=== PATIENT | female | born 1995 | race Caucasian/White ===

== ENCOUNTER 2016-09-10 22:04 | Emergency (ER) | payer OTHER ==
[2016-09-10] MEDS ORDERED: BENADRYL 25 MG CAPSULE PO ONE (22:47)
[2016-09-10] MEDS ORDERED: Decadron 4 MG INJ IM ONE (22:48)
--- NOTE | 2016-09-10 22:53 | ERPHSYRPT ---
- History of Present Illness Time Seen by Provider: 09/10/16 22:43 Source: patient Exam Limitations: no limitations Patient Subjective Stated Complaint: pt states she has had a ainsley for approx 2 weeks. states the only new exposure she can think of is swimming at [facility] Triage Nursing Assessment: pt alert and oeriented, answers qeustions approp. pt ambulatory with steady gait noted. respirations nonlabored with lungs cta. red raised bumps to abd, torso, back, hips. Physician History: FOR THE PAST 11 DAYS PT HAS HAD A PRURITIC ERYTHEMATOUS RASH ON THE TRUNK AND EXTREMITIES AFTER LYING AT [facility]. PT DENIES SHORTNESS OF AIR, FEVER, NAUSEA, THROAT SWELLING. Allergies/Adverse Reactions: tetanus toxoid, adsorbed Allergy (Verified 09/10/16 22:26) Home Medications: Non-Formulary Drug [Non-Formulary Item] 1 ea PO DAILY 12/04/15 [History] Omeprazole 20 MG [Prilosec 20 mg] 20 mg PO DAILY 09/10/16 [History] Prednisone 20 mg [Deltasone 20 mg] 20 mg PO DAILY 09/10/16 [History] Hx Tetanus, Diphtheria Vaccination/Date Given: Yes Hx Influenza Vaccination/Date Given: No Hx Pneumococcal Vaccination/Date Given: No Immunizations Up to Date: Yes - Review of Systems Constitutional: No Fever Ears, Nose, & Throat: No Throat Swelling Respiratory: No Dyspnea Abdominal/Gastrointestinal: No Abdominal Pain, No Nausea, No Vomiting Skin: Pruritis, Rash All Other Systems: Reviewed and Negative - Past Medical History Pertinent Past Medical History: Yes Neurological History: No Pertinent History ENT History: No Pertinent History Cardiac History: No Pertinent History Respiratory History: No Pertinent History Endocrine Medical History: No Pertinent History, Other Musculoskeletal History: No Pertinent History GI Medical History: GERD History: No Pertinent History Psycho-Social History: No Pertinent History Female Reproductive Disorders: No Pertinent History Other Medical History: CHRONIC HIVES - Past Surgical History Past Surgical History: No - Social History Smoking Status: Current every day smoker How long have you smoked: 3 years Exposure to second hand smoke: Yes Drug Use: none Patient Lives Alone: No - Female History Hx Last Menstrual Period: 2-3 weeks Hx Now: No - Nursing Vital Signs Nursing Vital Signs: Initial Vital Signs Temperature 98.2 F Temperature Source Oral Pulse Rate 93 Respiratory Rate 18 Blood Pressure [Right Arm] 119/78 Pain Intensity 0 - Physical Exam General Appearance: alert Eye Exam: PERRL/EOMI Ears, Nose, Throat Exam: TMs normal, pharynx normal, moist mucous membranes Neck Exam: full range of motion Respiratory Exam: lungs clear Cardiovascular Exam: normal heart sounds Gastrointestinal/Abdomen Exam: soft, normal bowel sounds Back Exam: normal range of motion Extremity Exam: No pedal edema Neurologic Exam: alert, cooperative Skin Exam: rash (HIVES SCATTERED ON EXTREMITIES AND TRUNK.) SpO2 Interpretation: normal SpO2: 100 Oxygen Delivery: Room Air - Course Nursing assessment & vital signs reviewed: Yes Ordered Tests: Medication Summary Generic Name Dose Route Start Last Admin Trade Name Freq PRN Reason Stop Dose Admin Dexamethasone Sodium Phosphate 4 mg 09/10/16 22:48 Decadron 4 Mg Inj IM 09/10/16 22:49 STAT ONE Discontinued Medications Generic Name Dose Route Start Last Admin Trade Name Freq PRN Reason Stop Dose Admin Diphenhydramine HCl 50 mg 09/10/16 22:47 Benadryl 25 Mg Capsule PO 09/10/16 22:48 STAT ONE - Departure Time of Disposition: 22:53 Departure Disposition: Home Clinical Impression: URTICARIA Condition: Fair Critical Care Time: No Instructions: Reduce Environmental Allergens Additional Instructions: FOLLOW UP WITH PRIVATE DOCTOR TOMORROW. Prescriptions: Hydroxyzine HCl 25 mg [Atarax 25 mg] 25 mg PO Q4H PRN PRN #30 tablet PRN Reason: Itching Methylprednisolone Packet [Medrol Dosepack] 4 mg PO UD #30 packet
[2016-09-10] MEDS ORDERED: Decadron 4 MG INJ ONE (22:54)
[2016-09-10] MEDS ORDERED: BENADRYL 25 MG CAPSULE ONE (22:54)
[2016-09-10 23:13] VITALS: BP 112/77; PULSE 99; O2SAT 98
== END 2016-09-10 23:13 | disposition home or self-care (01) ==
LOC: ED 22:04
DX: L50.9 Urticaria, unspecified (principal)
CPT/HCPCS: 96372; 99284; J1100; A9270-GY

== ENCOUNTER 2017-05-17 17:11 | Emergency (ER) | payer MEDICAID, OTHER ==
[2017-05-17] MEDS ORDERED: TYLENOL 325 MG PO ONE (17:34)
[2017-05-17] MEDS ORDERED: TYLENOL 325 MG ONE (17:38)
--- NOTE | 2017-05-17 17:39 | ERPHSYRPT ---
- History of Present Illness Source: patient, family (mother) Patient Subjective Stated Complaint: woke up this am with sore throat, body aches, dizziness, fatigue. reports she is 8 weeks Triage Nursing Assessment: reports having a fever at home, sore throat, rating pain 6/10. decrease in intake of fluids today. throat redenned, inflamed tonsils. skin pink warm and dry. Timing/Duration: today Hx Tetanus, Diphtheria Vaccination/Date Given: No (allergy) Hx Influenza Vaccination/Date Given: No Hx Pneumococcal Vaccination/Date Given: No Immunizations Up to Date: Yes <JOELLE ORDAZ - Last Filed: 05/17/17 18:10> <MADDIE WHALEY - Last Filed: 05/17/17 19:12> - History of Present Illness Time Seen by Provider: 05/17/17 17:29 Physician History: CC: sore throat Hx: 21 y/o patient of Dr Gómez is 8 weeks . She has sore throat, fever , chills, muscle aches today. No cough or headache. She slept most of the day. She has hx of frequent strep throat in the past. No dysuria. No vomiting. No vaginal bleeding or abd pain. (JOELLE ORDAZ) Allergies/Adverse Reactions: tetanus toxoid, adsorbed Allergy (Verified 09/10/16 22:26) Home Medications: Vits W-Ca,Fe,FA(<1Mg) [] 1 each PO DAILY 05/17/17 [History] - Review of Systems Constitutional: Fever, Chills, Fatigue, Malaise Eyes: No Symptoms Ears, Nose, & Throat: Throat Pain, No Nose Congestion Respiratory: No Cough Abdominal/Gastrointestinal: No Nausea, No Vomiting, No Diarrhea Genitourinary Symptoms: No Dysuria Musculoskeletal: Myalgias Skin: No Rash Neurological: No Focal Weakness, No Headache, No Parasthesia All Other Systems: Reviewed and Negative <JOELLE ORDAZ - Last Filed: 05/17/17 18:10> - Past Medical History Pertinent Past Medical History: No Neurological History: No Pertinent History ENT History: No Pertinent History Cardiac History: No Pertinent History Respiratory History: No Pertinent History Endocrine Medical History: No Pertinent History Musculoskeletal History: No Pertinent History GI Medical History: No Pertinent History History: No Pertinent History Psycho-Social History: No Pertinent History Female Reproductive Disorders: No Pertinent History Other Medical History: CHRONIC HIVES - Past Surgical History Past Surgical History: No Neuro Surgical History: No Pertinent History Cardiac: No Pertinent History Respiratory: No Pertinent History Gastrointestinal: No Pertinent History Genitourinary: No Pertinent History Musculoskeletal: No Pertinent History Female Surgical History: No Pertinent History - Social History Smoking Status: Current every day smoker How long have you smoked: 3 years Exposure to second hand smoke: Yes Drug Use: none Patient Lives Alone: No - Female History Hx Last Menstrual Period: february Hx Now: Yes Gestational Age: 8 weeks <SUSHMAJOELLEFREIDA - Last Filed: 05/17/17 18:10> - Physical Exam General Appearance: alert, thin Eye Exam: PERRL/EOMI Ears, Nose, Throat Exam: moist mucous membranes, pharyngeal erythema, No tonsillar exudate Neck Exam: normal inspection, non-tender, supple, lymphadenopathy, No meningismus Respiratory Exam: normal breath sounds, lungs clear Cardiovascular Exam: regular rate/rhythm, No murmur Gastrointestinal/Abdomen Exam: soft, No tenderness, No distention Extremity Exam: normal inspection, normal range of motion Neurologic Exam: alert, oriented x 3, cooperative Skin Exam: warm, dry, No rash SpO2 Interpretation: normal SpO2: 100 Oxygen Delivery: Room Air <JOELLE ORDAZ - Last Filed: 05/17/17 18:10> - Nursing Vital Signs Nursing Vital Signs: Initial Vital Signs Temperature 99.1 F 05/17/17 17:11 Pulse Rate 112 H 05/17/17 17:11 Respiratory Rate 16 05/17/17 17:11 Blood Pressure 113/70 05/17/17 17:11 O2 Sat by Pulse Oximetry 100 05/17/17 17:11 Pain Scale Pain Intensity 7 - Course Nursing assessment & vital signs reviewed: Yes <JOELLE ORDAZ - Last Filed: 05/17/17 18:10> Ordered Tests: Active Orders 24 hr Category Date Time Status Clean Catch Urine Specimen STAT Care 05/17/17 17:33 Active PO Fluid Challenge STAT Care 05/17/17 17:33 Active STREP SCREEN-BETA A Stat Lab 05/17/17 17:38 Completed UA W/ MICROSCOPIC Stat Lab 05/17/17 18:50 Results Medication Summary Discontinued Medications Generic Name Dose Route Start Last Admin Trade Name Freq PRN Reason Stop Dose Admin Acetaminophen 650 mg 05/17/17 17:34 05/17/17 17:39 Tylenol 325 Mg PO 05/17/17 17:35 650 mg STAT ONE Administration Acetaminophen Confirm 05/17/17 17:38 Tylenol 325 Mg Administered 05/17/17 17:39 Dose 650 mg .ROUTE .STK-MED ONE Penicillin G Benzathine 1.2 mu 05/17/17 18:48 05/17/17 19:04 Bicillin L-A 1.2 Mu/2ml Syringe IM 05/17/17 18:49 1.2 mu STAT ONE Administration Penicillin G Benzathine Confirm 05/17/17 18:58 Bicillin L-A 1.2 Mu/2ml Syringe Administered 05/17/17 18:59 Dose 1.2 mu IM .STK-MED ONE Lab/Rad Data: Laboratory Results 05/17/17 05/17/17 05/17/17 Range/Units 18:50 17:38 17:38 Ur Collection Type CCMS Urine Color YELLOW (YELLOW) Urine Appearance SLIGHTLY CLOUDY (CLEAR) Urine pH 6.0 (5-6) Ur Specific [place] 1.010 (1.005-1.025) Urine Protein NEGATIVE (Negative) Urine Ketones MODERATE (NEGATIVE) Urine Blood NEGATIVE (0-5) Charles/ul Urine Nitrite NEGATIVE (NEGATIVE) Urine Bilirubin NEGATIVE (NEGATIVE) Urine Urobilinogen NORMAL (0-1) mg/dL Ur Leukocyte Esterase 1+ (NEGATIVE) Urine Culture Reflexed Pending Urine Glucose NEGATIVE (NEGATIVE) mg/dL Influenza Type A Ag NEGATIVE (NEGATIVE) Influenza Type B Ag NEGATIVE (NEGATIVE) RSV (PCR) NEGATIVE (Negative) Streptococcus Screen POSITIVE (Negative) Specimen Received [id number] <JOELLE ORDAZ - Last Filed: 05/17/17 18:10> - Progress Progress: improved Discussed with : Dalia Will see patient in: office <MADDIE WHALEY - Last Filed: 05/17/17 19:12> - Progress Progress Note: 05/17/17 18:10 Labs pending. Report to Dr Whaley for further care and disposition. (JOELLE ORDAZ) 05/17/17 18:49 1.2 MU Benzathine Penicillin im given, pt was educated about test results, dr Dalia notified, agreed with plan to discharge her, will follow with her in few days, she was instructed to rest, drink plenty of fluids, and gargle with warm saline water. (MADDIE WHALEY) <JOELLE ORDAZ - Last Filed: 05/17/17 18:10> - Departure Time of Disposition: 19:12 Departure Disposition: Home Critical Care Time: No <MADDIE WHALEY - Last Filed: 05/17/17 19:12> - Departure Clinical Impression: Strep pharyngitis Condition: Stable Referrals: BISMARK GÓMEZ [Primary Care Provider] - Additional Instructions: Rest x 2-3 days, drink plenty of fluids, return if severe pain, swelling, difficulty breathing, high fever> 103 F!
[2017-05-17 18:30] LABS: INFLUENZA A NEGATIVE (NEGATIVE); INFLUENZA B NEGATIVE (NEGATIVE); RESPIRATORY SYNCTIAL VIRUS NEGATIVE (Negative)
[2017-05-17] MEDS ORDERED: Bicillin L-A 1.2 Mu/2ML SYRINGE IM ONE ×2 (18:48→18:58)
[2017-05-17 19:05] LABS: Appearance SLIGHTLY CLOUDY (CLEAR); Bilirubin NEGATIVE (NEGATIVE); Blood NEGATIVE Ery/ul (0-5); Glucose NEGATIVE (NEGATIVE); Ketones MODERATE (NEGATIVE); Leukocyte Esterase 1+ (NEGATIVE); Nitrite NEGATIVE (NEGATIVE); Protein,Urine Dip NEGATIVE (Negative); Urobilinogen NORMAL mg/dL (0-1)
[2017-05-17 19:13] LABS: Bacteria FEW /HPF (NEGATIVE); Epithelial Cells MANY /HPF (FEW)
[2017-05-17 19:18] VITALS: BP 100/60; PULSE 78; O2SAT 99
== END 2017-05-17 19:29 | disposition home or self-care (01) ==
LOC: ED 17:11
DX: J02.0 Streptococcal pharyngitis (principal); F17.200 Nicotine dependence, unspecified, uncomplicated
CPT/HCPCS: 81000; 87430; 87631; 96372; 99284; J0561; A9270-GY

== ENCOUNTER 2017-08-02 13:21 | Observation (INO) | payer OTHER ==
[2017-08-02 13:48] VITALS: BP 116/57; PULSE 94
[2017-08-02 14:38] LABS: Amphetamine,Urine NEGATIVE (NEGATIVE); Barbiturate,Urine NEGATIVE (NEGATIVE); Benzodiazepine,Urine NEGATIVE (NEGATIVE); Cocaine,Urine NEGATIVE (NEGATIVE); Methadone,Urine NEGATIVE (NEGATIVE); Opiate,Urine NEGATIVE (NEGATIVE); PCP,Urine NEGATIVE (NEGATIVE); THC,Urine NEGATIVE (NEGATIVE)
[2017-08-02 15:28] LABS: Appearance CLEAR (CLEAR); Bilirubin NEGATIVE (NEGATIVE); Blood NEGATIVE Ery/ul (0-5); Glucose NEGATIVE (NEGATIVE); Ketones NEGATIVE (NEGATIVE); Leukocyte Esterase NEGATIVE (NEGATIVE); Nitrite NEGATIVE (NEGATIVE); Protein,Urine Dip NEGATIVE (Negative); Specific Gravity 1.005 (1.005-1.025); Urobilinogen NORMAL mg/dL (0-1)
== END 2017-08-02 14:40 | disposition home or self-care (01) ==
LOC: OB 13:21
PROVIDERS: ADMIT Family Medicine; ATTEND Family Medicine
DX: Z34.02 Encounter for supervision of normal first pregnancy, second trimester (principal)
CPT/HCPCS: 80307; 81002; G0378

== ENCOUNTER 2017-10-08 19:48 | Observation (INO) | payer OTHER ==
[2017-10-08 20:38] VITALS: BP 110/63; PULSE 80; O2SAT 99
== END 2017-10-08 21:53 | disposition home or self-care (01) ==
LOC: UNDOADMOB 19:48 → OB 19:48 → UNDODISOB 21:53
PROVIDERS: ADMIT Family Medicine; ATTEND Family Medicine
DX: Z34.03 Encounter for supervision of normal first pregnancy, third trimester (principal)
CPT/HCPCS: G0378

== ENCOUNTER 2017-11-30 19:30 | Observation (INO) | payer OTHER | END 2017-11-30 20:50 | disposition home or self-care (01) | LOC: OB 19:30 ==

== ENCOUNTER 2017-12-02 15:00 | Observation (INO) | payer OTHER ==
[2017-12-02 15:33] LABS: Hematocrit 31.4 % (35-47); Hemoglobin 10.4 gm/dl (12.0-16.0); Mean Cell Volume 90.8 fl (78-100); Mean Corpuscular Hgb Concent. 33.1 g/dl (32-36); Mean Platelet Volume 11.1 fl (6-9.5); Platelet Count 192 K/mm3 (150-450); Red Blood Count 3.46 M/mm3 (4.1-5.4)
[2017-12-02 15:34] VITALS: BP 119/68; PULSE 83
[2017-12-02 16:11] LABS: ALBUMIN 3.3 g/dL (3.5-5.0); ALKALINE PHOSPHATASE 187 U/L (38-126); ANION GAP 12.8 MEQ/L (5-15); CHLORIDE 107 mmol/L (98-107); Calcium 8.8 mg/dL (8.4-10.2); Carbon Dioxide 23 mmol/L (22-30); Creatinine 1 0.47 mg/dL (0.52-1.04); Glucose 99 mg/dL (74-106); Potassium 3.2 mmol/L (3.5-5.1); SGOT/AST 14 U/L (14-36); SGPT/ALT 9 U/L (0-35); SODIUM 140 mmol/L (137-145)
[2017-12-02 16:14] LABS: BLOOD UREA NITROGEN < 2 mg/dL (7-17)
[2017-12-02 16:37] LABS: BAND 1 % (0.0-2.0); Eosinophil 3 % (0.00-3.0); Lymphocytes 28 % (24-44); Metamyelocyte 1 %; Monocyte 3 % (0.0-12.0); Neutrophils 64 % (36.0-66.0); Total Cells Counted 100
[2017-12-02 16:38] LABS: Platelet Estimate NORMAL (NORMAL)
[2017-12-02 16:39] LABS: Granulocyte Absolute (ANC) 8.44 (1.4-6.9)
--- NOTE | 2017-12-02 21:31 | XRAY ---
Indication: Evaluate KAMRYN. Hypertension. Limited OB ultrasound performed to evaluate KAMRYN. There is a single intrauterine with heart rate 130 BPM. Four-quadrant KAMRYN is 10.1 cm. This was previously 11.5 cm on August 04, 2017.
== END 2017-12-02 16:50 | disposition home or self-care (01) ==
LOC: MED SURG 15:00
PROVIDERS: ADMIT Family Medicine; ATTEND Family Medicine
DX: Z34.03 Encounter for supervision of normal first pregnancy, third trimester (principal)
CPT/HCPCS: 36415; 76815; 80053; 84550; 85025; G0378; 59025

== ENCOUNTER 2017-12-07 13:00 | Observation (INO) | payer OTHER ==
[2017-12-07 13:56] VITALS: BP 138/83; PULSE 86
== END 2017-12-07 13:45 | disposition home or self-care (01) ==
LOC: OB 13:00
PROVIDERS: ADMIT Family Medicine; ATTEND Family Medicine
DX: Z34.83 Encounter for supervision of other normal pregnancy, third trimester (principal)
CPT/HCPCS: 59025; G0378

== ENCOUNTER 2017-12-09 15:22 | Observation (INO) | payer OTHER ==
[2017-12-09 15:44] VITALS: BP 130/80; PULSE 77
--- NOTE | 2017-12-09 18:06 | XRAY ---
Indication: growth. Gestational diabetes. 2-dimensional OB ultrasound performed. Comparison: August 04, 2017. There is again single viable intrauterine in cephalic presentation. heart rate 142 BPM. anatomy previously documented. Visualized stomach and bladder unremarkable. Placenta is again anterior without abruption/previa. BPD measures 9.39 cm corresponding to 38 weeks 2 days. HC measures 34.06 cm corresponding to 39 weeks 1 day. AC measures 35.14 cm corresponding to 39 weeks 0 day. FL measures 7.56 cm corresponding to 38 weeks 5 days. KAMRYN is 8.1 cm. Impression: Again single viable intrauterine with mean gestational age 38 weeks 6 days. Normal progression of . No new/acute findings.
== END 2017-12-09 16:55 | disposition home or self-care (01) ==
LOC: OB 15:22
PROVIDERS: ADMIT Family Medicine; ATTEND Family Medicine
DX: Z34.03 Encounter for supervision of normal first pregnancy, third trimester (principal)
CPT/HCPCS: 59025; 76805; G0378

== ENCOUNTER 2017-12-11 05:45 | Inpatient (IN) | payer OTHER ==
[2017-12-11] MEDS ORDERED: BRETHINE 1 MG/ML SQ PRN (17:29)
[2017-12-11] MEDS ORDERED: Cervidil 10 MG VAG SCH (22:00)
[2017-12-12 02:05] LABS: Barbiturate,Urine NEGATIVE (NEGATIVE); Benzodiazepine,Urine NEGATIVE (NEGATIVE); Cocaine,Urine NEGATIVE (NEGATIVE); Methadone,Urine NEGATIVE (NEGATIVE); Opiate,Urine NEGATIVE (NEGATIVE); PCP,Urine NEGATIVE (NEGATIVE); THC,Urine NEGATIVE (NEGATIVE)
[2017-12-12] MEDS ORDERED: XYLOCAINE 1% HCL 20 ML MDV IJ PRN (02:55)
[2017-12-12] MEDS ORDERED: PITOCIN 30 UNITS/ LR 500 ML 500 ML IV SCH (03:00)
[2017-12-12 03:13] LABS: BASOPHIL % 0.2 % (0.0-0.4); Basophil (Absolute #) 0.03 (0-0.4); Eosinophil % 1.7 % (0.00-5.0); Eosinophil (Absolute #) 0.22 (0-0.5); Granulocyte Absolute (ANC) 9.38 (1.4-6.9); Granulocytes % 72.2 % (36.0-66.0); Hematocrit 32.8 % (35-47); Hemoglobin 10.7 gm/dl (12.0-16.0); Lymphocyte (Absolute #) 2.47 (1.0-4.6); Mean Cell Volume 92.1 fl (78-100); Mean Corpuscular Hgb Concent. 32.6 g/dl (32-36); Mean Platelet Volume 12.1 fl (6-9.5); Monocyte (Absolute #) 0.89 (0.0-1.3); Monocytes % 6.9 % (0.0-12.0); Platelet Count 198 K/mm3 (150-450); Red Blood Count 3.56 M/mm3 (4.1-5.4); Red Cell Distribution Width 13.6 % (11.5-14.0)
[2017-12-12] MEDS: Lactated Ringers 1,000 ML IV SCH ×2 (07:52→18:29)
[2017-12-12] MEDS ORDERED: Lactated Ringers 1,000 ML IV ONE (15:07)
[2017-12-12] MEDS ORDERED: Ephedrine Sulfate 50 MG/ML IV PRN (15:07)
[2017-12-12 20:14] LABS: Appearance SLIGHTLY CLOUDY (CLEAR); Bilirubin NEGATIVE (NEGATIVE); Blood NEGATIVE Ery/ul (0-5); Glucose NEGATIVE (NEGATIVE); Ketones SMALL (NEGATIVE); Leukocyte Esterase NEGATIVE (NEGATIVE); Nitrite NEGATIVE (NEGATIVE); Ph 8.5 (5-6); Protein,Urine Dip NEGATIVE (Negative); Specific Gravity 1.005 (1.005-1.025); Urobilinogen NORMAL mg/dL (0-1)
[2017-12-13] MEDS: OB EPIDURAL NAROPIN/SUFENTANIL IN NACL EPIDURAL PRN ×2 (00:28→11:19)
[2017-12-13] MEDS: Lactated Ringers 1,000 ML IV SCH ×3 (02:08→13:10)
[2017-12-13] MEDS: CLINDAMYCIN-D5W 600 MG/50 ML*** 600 MG/50 ML BAG IV SCH ×2 (10:27→18:40)
[2017-12-13 14:19] LABS: Amphetamine,Urine NEGATIVE (NEGATIVE)
[2017-12-13] MEDS ORDERED: Reglan 10 MG/2 ML IV SCH (14:45)
[2017-12-13] MEDS ORDERED: BICITRA 30 ML CUP PO SCH (14:45)
[2017-12-13] MEDS ORDERED: Pepcid 20 MG VIAL IV SCH (14:45)
[2017-12-13] MEDS ORDERED: Lactated Ringers 1,000 ML IV SCH ×2 (15:00)
[2017-12-13] MEDS ORDERED: CEFAZOLIN 2 GM-D5W BAG** 2 GM/50 ML ML IV SCH (15:00)
[2017-12-13 15:16] LABS: Hematocrit 34.2 % (35-47); Hemoglobin 11.3 gm/dl (12.0-16.0); Mean Cell Volume 91.4 fl (78-100); Mean Corpuscular Hemoglobin 30.2 pg (26-32); Mean Platelet Volume 11.2 fl (6-9.5); Platelet Count 192 K/mm3 (150-450); Red Blood Count 3.74 M/mm3 (4.1-5.4); Red Cell Distribution Width 13.5 % (11.5-14.0); White Blood Count 17.3 K/mm3 (4.0-10.5)
[2017-12-13 15:52] LABS: INR 1.08 (0.8-3.0)
[2017-12-13 15:54] LABS: PTT 26.7 SECONDS (25.3-37.0)
[2017-12-13 16:00] LABS: ABO TYPING A; Antibody Screen NEGATIVE (NEGATIVE); RH TYPING POSITIVE
[2017-12-13 16:20] LABS: Appearance HAZY (CLEAR); Bilirubin NEGATIVE (NEGATIVE); Blood 250 Ery/ul (0-5); Glucose NEGATIVE (NEGATIVE); Ketones MODERATE (NEGATIVE); Leukocyte Esterase 1+ (NEGATIVE); Nitrite NEGATIVE (NEGATIVE); Protein,Urine Dip 1+ (Negative); Urobilinogen 1 mg/dL (0-1)
[2017-12-13 16:21] LABS: Bacteria FEW /HPF (NEGATIVE); RBC >100 /HPF (0-2); WBC 15-25 /HPF (0-5)
[2017-12-13 16:28] LABS: Amphetamine,Urine NEGATIVE (NEGATIVE); Barbiturate,Urine NEGATIVE (NEGATIVE); Benzodiazepine,Urine NEGATIVE (NEGATIVE); Cocaine,Urine NEGATIVE (NEGATIVE); Methadone,Urine NEGATIVE (NEGATIVE); Opiate,Urine NEGATIVE (NEGATIVE); PCP,Urine NEGATIVE (NEGATIVE); THC,Urine NEGATIVE (NEGATIVE)
[2017-12-13] MEDS ORDERED: Phenergan 25 MG INJ IM PRN (16:28)
[2017-12-13] MEDS ORDERED: Zofran 4 MG/2 ML VIAL IV PRN (16:28)
[2017-12-13] MEDS ORDERED: TUCKS TP PRN (16:28)
[2017-12-13] MEDS ORDERED: Dulcolax 10 MG SUPP PR PRN (16:28)
[2017-12-13] MEDS ORDERED: DEMEROL 50 MG IV PRN (16:28)
[2017-12-13] MEDS ORDERED: LANSINOH 40 GM TOP PRN (16:28)
[2017-12-13] MEDS ORDERED: CORTISONE 1% CREAM TP PRN (16:28)
[2017-12-13] MEDS ORDERED: Nubain 10 MG/ML IV PRN (16:28)
[2017-12-13] MEDS ORDERED: Sodium Chloride 0.9% 10 ML FLUSH Syringe IJ PRN (16:28)
[2017-12-13] MEDS ORDERED: HOLD NARCOTIC ANALGESICS AND SEDATIVES X24 HR MC PRN (16:28)
[2017-12-13] MEDS ORDERED: M-M-R II Vaccine With Diluent SQ ONE (16:28)
[2017-12-13] MEDS ORDERED: MORPHINE SULFATE 2 MG INJ IV PRN (16:28)
[2017-12-13] MEDS ORDERED: BENADRYL 50 MG/ML IV PRN (16:28)
[2017-12-13] MEDS ORDERED: Dermoplast Spray TP PRN (16:28)
[2017-12-13] MEDS ORDERED: Narcan 0.4 MG/ML IV PRN (16:28)
[2017-12-13] MEDS ORDERED: Mylicon 80MG PO PRN (16:28)
[2017-12-13] MEDS ORDERED: CLARITIN 10 MG PO PRN (16:28)
[2017-12-13] MEDS ORDERED: TYLENOL EXTRA STRENGTH 500 MG PO PRN (16:28)
[2017-12-13] MEDS ORDERED: Anucort-HC SUPPOSITORY PR PRN (16:28)
[2017-12-13] MEDS ORDERED: Dextrose 5%-Lr IV Solution 1000 ML 1,000 ML IV SCH (16:30)
[2017-12-13] MEDS ORDERED: Lactated Ringers 1,000 ML IV ONE (16:57)
[2017-12-14] MEDS: Colace 100 MG PO SCH ×3 (00:23→22:36)
[2017-12-14] MEDS: CLINDAMYCIN-D5W 600 MG/50 ML*** 600 MG/50 ML BAG IV SCH ×3 (00:23→14:53)
[2017-12-14] MEDS: PERCOCET TABLET 5/325MG PO PRN ×3 (04:35→15:14)
[2017-12-14 05:41] LABS: BASOPHIL % 0.1 % (0.0-0.4); Basophil (Absolute #) 0.02 (0-0.4); Eosinophil % 0.1 % (0.00-5.0); Eosinophil (Absolute #) 0.01 (0-0.5); Granulocytes % 81.6 % (36.0-66.0); Hematocrit 29.9 % (35-47); Hemoglobin 10.1 gm/dl (12.0-16.0); Lymphocyte (Absolute #) 1.92 (1.0-4.6); Lymphocytes % 10.4 % (24.0-44.0); Mean Cell Volume 90.3 fl (78-100); Mean Corpuscular Hemoglobin 30.5 pg (26-32); Mean Corpuscular Hgb Concent. 33.8 g/dl (32-36); Mean Platelet Volume 11.9 fl (6-9.5); Monocyte (Absolute #) 1.44 (0.0-1.3); Monocytes % 7.8 % (0.0-12.0); Platelet Count 205 K/mm3 (150-450); Red Blood Count 3.31 M/mm3 (4.1-5.4); Red Cell Distribution Width 12.9 % (11.5-14.0); White Blood Count 18.5 K/mm3 (4.0-10.5)
--- NOTE | 2017-12-14 08:15 | OP ---
SURGERY DATE/TIME: 12/13/2017 1600 PREOPERATIVE DIAGNOSIS: Cephalopelvic disproportion. Prima patient. POSTOPERATIVE DIAGNOSIS: Cephalopelvic disproportion. Prima patient. PROCEDURE: Lower uterine segment transverse incision primary section. SURGEON: Dr. Leal. ANESTHESIA: General. HISTORY: The patient is a 22 year old white female who presents now after having been in labor being induced for several hours stuck at 7 cm. The patient not making any progress it was felt that the patient had cephalopelvic disproportion and need to be delivered by section. The patient was appraised of the risks of the procedure including the risk of wound infection, bleeding requiring transfusion and injury to any intra-abdominal organs. The patient verbalized her understanding and desired to have the procedure performed. DESCRIPTION OF PROCEDURE: The patient was prepped and draped in the supine position. Regional anesthesia was challenged and found to not be adequate. The patient was therefore placed under general anesthesia. The patient is prepped and draped in supine position. A Pfannenstiel incision was made and carried down sharply through the fascia which was divided in a horizontal fashion. The rectus muscles were then bluntly and sharply dissected away from the overlying fascia and bluntly retracted laterally. The peritoneal cavity was entered sharply. A bladder flap was developed and the bladder was retracted inferiorly. The uterus was scored in a horizontal fashion and entered in the midline. The wound extended using bandage scissors. A white male infant was delivered through the abdominal wound. The cord was doubly clamped and divided between the clamps and the baby was handed off for further care. The placenta was then manually removed from the uterus. The uterus was exteriorized and wrapped in moist gauze. The wound edges were then reapproximated using 1-0 chromic suture in running, interlocking fashion. The cul-de-sac area was then swabbed clear of blood and amniotic fluid and the uterus was replaced in the abdominal cavity. Paracolic gutters were then also swabbed clear of blood and amniotic fluid. The peritoneum was then repaired using 3-0 chromic suture in a running fashion. The fascia was repaired using 0 Vicryl suture in a running fashion. The skin edges were reapproximated using ruby. The sponge, needle and instrument count was reported as correct at the end of the procedure. The patient did receive 1 gm of Kefzol prior to surgery. Estimated blood loss was 300 cc. She was taken back to the recovery room in good condition. Estimated blood loss is 500 cc.
[2017-12-14] MEDS: FERREX 150 PO SCH (10:40)
[2017-12-14] MEDS: MOTRIN 400 MG PO PRN ×2 (10:40→18:24)
[2017-12-14 11:26] VITALS: O2SAT 100
[2017-12-14] MEDS ORDERED: Astramorph-Pf 5 MG/10 ML IJ ONE (15:26)
[2017-12-14] MEDS ORDERED: Decadron 4 MG INJ IV ONE (15:28)
[2017-12-14] MEDS ORDERED: Pitocin 10 UNITS/ML IV ONE (15:28)
[2017-12-14] MEDS ORDERED: Zofran 4 MG/2 ML VIAL IV ONE (15:28)
[2017-12-14] MEDS ORDERED: DIPRIVAN 200 MG/20 ML IV ONE (15:28)
[2017-12-14] MEDS ORDERED: TORAdol 30 mg Injection IJ ONE (15:28)
[2017-12-14] MEDS ORDERED: Quelicin Fliptop 200 MG/10 ML IJ ONE (15:28)
[2017-12-14] MEDS ORDERED: LIDOCAINE HCL 2% 100 MG/5 ML IJ ONE (15:28)
[2017-12-14] MEDS ORDERED: Nesacaine 3% -Mpf*** 20ML SDV IJ ONE (15:28)
[2017-12-14] MEDS ORDERED: Naropin 0.5% 30 ML VIAL IJ ONE (15:28)
[2017-12-14] MEDS ORDERED: XYLOCAINE 2%/Epi 1:200000 20ML VIAL MPF IJ ONE (15:28)
[2017-12-14] MEDS ORDERED: DEMEROL 75 MG IM PRN (16:28)
[2017-12-14] MEDS ORDERED: Ambien 10 MG PO PRN (16:28)
[2017-12-14] MEDS: NORCO 5/325 MG PO PRN ×2 (18:24→22:35)
[2017-12-15] MEDS: NORCO 5/325 MG PO PRN ×2 (06:02→10:36)
[2017-12-15] MEDS: MOTRIN 400 MG PO PRN (06:02)
--- NOTE | 2017-12-15 07:08 | PCM.DS ---
Discharge Summary Date of Admission: 12/12/17 14:50 Admitting Physician: BISMARK MATHIS Consults: Consults on Case 12/13/17 14:49 Notify Physician OF ADMISSION 12/13/17 14:52 Notify Anesthesia Provider ROUTINE 12/13/17 16:33 Notify Anesthesia Provider PRN Primary Care Provider: BISMARK MATHIS Allergies Allergies latex Allergy (Verified 12/12/17 09:09) Hives tetanus toxoid, adsorbed Allergy (Verified 12/11/17 19:22) Hospital Summary - Hospital Course Hospital Course: Pt is 22 yo who came in at 39 wks for IOL due to preeclampsia. She had cervadil and pitocin, SROM, and dilated to 7 cm. She was then taken to c- section for nonprogression of labor. She had to be given general anesthesia as she was not numb on the R side of her abdomen. Baby was out in 3 min and cried immediately. However he had decreased cry and decreased feeding; CBC showed 4 bands so he was started on IV antibiotics and transferred to [facility]. Mom has slight anemia with hgb 10.1. she is up walking without dizziness. Bleeding without large clots. Does have LE swelling. Will be discharged today. - Vitals & Intake/Output Vital Signs: Vital Signs Temperature 98.5 F 12/15/17 04:00 Pulse Rate 91 H 12/15/17 04:00 Respiratory Rate 14 12/15/17 04:00 Blood Pressure 139/85 12/15/17 04:00 O2 Sat by Pulse Oximetry 100 12/14/17 08:00 Intake & Output: Intake & Output 12/12/17 12/13/17 12/14/17 12/15/17 11:59 11:59 11:59 11:59 Intake Total 500 8435 1500 Output Total 750 1600 Balance -250 6835 1500 Weight 77.111 kg 77.111 kg - Lab Result Diagrams: 12/14/17 05:02 Micro Results-Entire Visit: Microbiology 12/12/17 19:30 Urine Culture - Final Urine, Indwelling Catheter NO GROWTH - Procedures and Test Procedures and Tests throughout Hospitalization: Therapy Orders & Screens 12/13/17 16:27 Standby STAT Comment: Diagnosis: pre-eclampsia,term IUP Discharge Exam General Appearance: no apparent distress, alert Neurologic Exam: oriented x 3, cooperative Skin Exam: normal color, warm, dry, No rash Cardiovascular Exam: regular rate/rhythm, normal heart sounds, edema Gastrointestinal/Abdomen Exam: soft, other (wound c/d/i. fundus firm under umbilicus.) Extremity Exam: pedal edema (1+) Final Diagnosis/Problem List - Final Discharge Diagnosis/Problem (1) delivery delivered Current Visit: Yes Status: Acute Assessment & Plan: POD #2, doing well. rtc 5-7d after delivery and ruby will be removed & steri- strips placed, per Dr. Leal. (2) Preeclampsia Current Visit: Yes Status: Acute Assessment & Plan: Would like her to check BP BID at home, report any > 160 systolic or > 110 diastolic KENDRA. Watch for severe ALMEIDA, visual changes, or RUQ pain. - Discharge Disposition: Home, Self-Care Condition: Good Prescriptions: New Docusate Sodium 100 mg [Colace 100 MG] 100 mg PO BID PRN #30 capsule PRN Reason: Constipation Ibuprofen 800 mg PO TID PRN #35 tablet PRN Reason: Pain Hydrocodone Bit/Acetaminophen [Mutual 5-325 Tablet] 1 each PO Q4H PRN #30 tablet MDD 6 PRN Reason: Severe Pain Continue Vits W-Ca,Fe,FA(<1Mg) [] 1 each PO DAILY Ferrous Sulfate [Iron] 325 mg PO DAILY Ranitidine HCl [Zantac] 150 mg PO BID Follow up with: BISMARK MATHIS [Primary Care Provider] - 1 Week
[2017-12-15] MEDS: Colace 100 MG PO SCH (09:27)
[2017-12-15] MEDS: FERREX 150 PO SCH (09:27)
[2017-12-15 16:42] VITALS: BP 156/96; PULSE 79
== END 2017-12-15 15:35 | disposition home or self-care (01) | DRG 765 ==
LOC: OB 18:11 → OBSVTOIN 12-12 14:50 → MED SURG 12-14 15:53
PROVIDERS: ADMIT Family Medicine; ATTEND Family Medicine
PROC: 10D00Z1 Extraction of Products of Conception, Low, Open Approach (ICD-10-PCS; principal; 2017-12-13)
DX: O32.4XX0 Maternal care for high head at term, not applicable or unspecified (principal); O14.93 Unspecified pre-eclampsia, third trimester; Z3A.39 39 weeks gestation of pregnancy; Z37.0 Single live birth
CPT/HCPCS: 36415; 59025; 64488; 76805; 76937; 76942; 80307; 81000; 81002; 85025; 85027; 85610; 85730; 86850; 86900; 86901; 87086; 90707; 94799; 96372; G0378; J0330; J0690; J1100; J1885; J2274; J2405; J2590; J2704; J2795; L0625; A9270-GY

== ENCOUNTER 2021-01-24 21:50 | Observation (INO) | payer OTHER ==
[2021-01-24] MEDS ORDERED: MORPHINE SULFATE 4 MG INJ IV ONE (22:03)
[2021-01-24] MEDS ORDERED: Sodium Chloride 0.9% 1000 ML 1,000 ML IV STA (22:03)
[2021-01-24] MEDS ORDERED: Hydromorphone 1 mg/ml Injection IV ONE (22:03)
--- NOTE | 2021-01-24 22:08 | ERPHSYRPT ---
- History of Present Illness Time Seen by Provider: 01/24/21 21:52 Historian: patient Exam Limitations: no limitations Physician History: 25 years old female with history of kidney stones presented in the ER with 2 days history of right flank pain moderate to severe sharp stabbing, radiating to right groin/back, aggravated with movement/palpation/activity and partial relief with taking pain medications and rest. Denies associated vomiting but does have nausea. Reports symptoms similar to previous episodes when she had kidney stone in the past. No fever or chills reported. Timing/Duration: day(s) (2), constant, gradual onset, worse Activities at Onset: rest Quality: sharpness, stabbing Abdominal Pain Onset Location: flank Pain Radiation: groin, back Severity of Pain-Max: severe Severity of Pain-Current: severe Modifying Factors: Worsens With: movement, palpation Associated Symptoms: back, nausea Previous symptoms: same symptoms as today Allergies/Adverse Reactions: latex Allergy (Verified 01/24/21 23:49) Hives tetanus toxoid, adsorbed Allergy (Verified 01/24/21 23:49) Home Medications: No Reportable Medications [No Reported Medications] 01/24/21 [History] Hx Tetanus, Diphtheria Vaccination/Date Given: No (allergy) Hx Influenza Vaccination/Date Given: No Hx Pneumococcal Vaccination/Date Given: No - Review of Systems Constitutional: No Symptoms Eyes: No Symptoms Ears, Nose, & Throat: No Symptoms Respiratory: No Symptoms Cardiac: No Symptoms Abdominal/Gastrointestinal: Abdominal Pain, Nausea Genitourinary Symptoms: No Symptoms Musculoskeletal: No Symptoms Skin: No Symptoms Neurological: No Symptoms Psychological: No Symptoms Endocrine: No Symptoms Hematologic/Lymphatic: No Symptoms Immunological/Allergic: No Symptoms - Past Medical History Pertinent Past Medical History: No Neurological History: No Pertinent History ENT History: No Pertinent History Cardiac History: No Pertinent History Respiratory History: Asthma Endocrine Medical History: No Pertinent History Musculoskeletal History: Osteoarthritis GI Medical History: No Pertinent History History: No Pertinent History Psycho-Social History: No Pertinent History Female Reproductive Disorders: No Pertinent History Other Medical History: OTHER PMHX: GERD, ANXIETY, DEPRESSION - Past Surgical History Past Surgical History: No Neuro Surgical History: No Pertinent History Cardiac: No Pertinent History Respiratory: No Pertinent History Gastrointestinal: No Pertinent History Genitourinary: No Pertinent History Musculoskeletal: No Pertinent History Female Surgical History: No Pertinent History - Social History Smoking Status: Current every day smoker How long have you smoked: 5 yrs Exposure to second hand smoke: Yes Drug Use: none Patient Lives Alone: No - Nursing Vital Signs Nursing Vital Signs: Initial Vital Signs Temperature 98.5 F 01/24/21 22:00 Pulse Rate 144 H 01/24/21 22:00 Respiratory Rate 20 01/24/21 22:00 Blood Pressure 145/86 01/24/21 22:00 O2 Sat by Pulse Oximetry 99 01/24/21 22:00 Pain Scale Pain Intensity 3 - Physical Exam General Appearance: no apparent distress, alert Eye Exam: PERRL/EOMI Ears, Nose, Throat Exam: normal ENT inspection Neck Exam: normal inspection, supple, full range of motion Respiratory Exam: normal breath sounds, lungs clear Cardiovascular Exam: normal heart sounds, tachycardia Gastrointestinal/Abdomen Exam: soft, normal bowel sounds, tenderness, guarding (Right flank) Back Exam: normal inspection, normal range of motion, CVA tenderness (Right) Extremity Exam: normal inspection, normal range of motion Neurologic Exam: alert, oriented x 3, cooperative Skin Exam: normal color SpO2 Interpretation: normal SpO2: 99 O2 Delivery: Room Air Ordered Tests: Active Orders 24 hr Category Date Time Status IV Insertion STAT Care 01/24/21 22:03 Active NPO (ED) STAT Care 01/24/21 22:03 Active ABDOMEN AND PELVIS W/0 CONTRAS [CT] Stat Exams 01/24/21 22:03 Taken CBC W DIFF Stat Lab 01/24/21 22:11 Completed CMP Stat Lab 01/24/21 22:11 Completed CULTURE,URINE Stat Lab 01/24/21 22:03 Received HCG,QUALITATIVE URINE Stat Lab 01/24/21 22:11 Completed LIPASE Stat Lab 01/24/21 22:11 Completed Manual Differential NC Stat Lab 01/24/21 22:11 Completed UA W/RFX UR CULTURE Stat Lab 01/24/21 22:03 Completed Transfer Order Routine Transfer 01/25/21 Ordered Medication Summary Generic Name Dose Route Start Last Admin Trade Name Freq PRN Reason Stop Dose Admin Sodium Chloride 1,000 mls @ 125 mls/hr 01/25/21 00:45 Sodium Chloride 0.9% 1000 Ml IV 02/24/21 00:44 .Q8H YOUSIF Discontinued Medications Generic Name Dose Route Start Last Admin Trade Name Freq PRN Reason Stop Dose Admin Hydromorphone HCl 1 mg 10/30/21 22:03 01/24/21 22:13 Hydromorphone 1 Mg/1ml Inj 1 Mg/Ml Syringe IV 01/24/21 22:04 1 mg STAT ONE Administration Hydromorphone HCl Confirm 01/24/21 22:12 Hydromorphone 1 Mg/1ml Inj 1 Mg/Ml Syringe Administered 01/24/21 22:13 Dose 1 mg .ROUTE .STK-MED ONE Sodium Chloride 1,000 mls @ 999 mls/hr 01/24/21 22:03 01/24/21 22:14 Sodium Chloride 0.9% 1000 Ml IV 01/24/21 23:03 999 mls/hr .Q1H1M STA Administration Sodium Chloride Confirm 01/24/21 22:12 Sodium Chloride 0.9% 1000 Ml Administered 01/24/21 22:13 Dose 1,000 mls @ ud .ROUTE .STK-MED ONE Ceftriaxone Sodium/Dextrose 2 g in 50 mls @ 100 mls/hr 01/24/21 23:15 01/24/21 23:44 Rocephin 2 Gm-D5w 50ml Bag IV 01/24/21 23:44 100 mls/hr STAT STA 100 mls/hr Administration Ceftriaxone Sodium/Dextrose Confirm 01/24/21 23:42 Rocephin 2 Gm-D5w 50ml Bag Administered 01/24/21 23:43 Dose 2 g in 50 mls @ ud IV .STK-MED ONE Morphine Sulfate 4 mg 01/24/21 22:03 01/24/21 22:10 Morphine Sulfate 4 Mg/Ml Injection IV 01/24/21 22:04 Not Given STAT ONE Ondansetron HCl 4 mg 01/24/21 22:11 01/24/21 22:13 Ondansetron Hcl 4 Mg/2 Ml Vial IV 01/24/21 22:12 4 mg STAT ONE Administration Ondansetron HCl Confirm 01/24/21 22:12 Ondansetron Hcl 4 Mg/2 Ml Vial Administered 01/24/21 22:13 Dose 4 mg .ROUTE .STK-MED ONE Lab/Rad Data: Laboratory Result Diagrams 01/24/21 22:11 01/24/21 22:11 Laboratory Results 01/24/21 01/24/21 01/24/21 Range/Units 22:11 22:11 22:11 WBC 17.9 H (4.0-10.5) K/mm3 RBC 4.15 (4.1-5.4) M/mm3 Hgb 11.6 L (12.0-16.0) gm/dl Hct 35.4 (35-47) % MCV 85.3 (78-100) fl MCH 28.0 (26-32) pg MCHC 32.8 (32-36) g/dl RDW 13.1 (11.5-14.0) % Plt Count 230 (150-450) K/mm3 MPV 10.5 (7.5-11.0) fl Segmented Neutrophils 66 (36.0-66.0) % Band Neutrophils 17 H (0.0-2.0) % Lymphocytes (Manual) 15 L (24-44) % Monocytes (Manual) 2 (0.0-12.0) % Platelet Estimate NORMAL (NORMAL) RBC Morphology NORMAL Sodium 132 L (137-145) mmol/L Potassium 3.5 (3.5-5.1) mmol/L Chloride 97 L (98-107) mmol/L Carbon Dioxide 22 (22-30) mmol/L Anion Gap 17.0 H (5-15) MEQ/L BUN 20 H (7-17) mg/dL Creatinine 2.09 H (0.52-1.04) mg/dL Estimated GFR 30.9 ML/MIN Glucose 111 H (74-106) mg/dL Calcium 9.1 (8.4-10.2) mg/dL Total Bilirubin 0.70 (0.2-1.3) mg/dL AST 18 (14-36) U/L ALT 16 (0-35) U/L Alkaline Phosphatase 88 (38-126) U/L Serum Total Protein 7.6 (6.3-8.2) g/dL Albumin 4.0 (3.5-5.0) g/dL Lipase 11 L (23-300) U/L Urine Color (YELLOW) Urine Appearance (CLEAR) Urine pH (5-6) Ur Specific [place] (1.005-1.025) Urine Protein (Negative) Urine Ketones (NEGATIVE) Urine Blood (0-5) Charles/ul Urine Nitrite (NEGATIVE) Urine Bilirubin (NEGATIVE) Urine Urobilinogen (0-1) mg/dL Ur Leukocyte Esterase (NEGATIVE) Urine WBC (Auto) (0-5) /HPF Urine RBC (Auto) (0-2) /HPF U Epithel Cells (Auto) (FEW) /HPF Urine Bacteria (Auto) (NEGATIVE) /HPF U Non-Squamous Epi Cells (FEW) /HPF Urine Culture Reflexed (NO) Urine Glucose (NEGATIVE) mg/dL Urine HCG, Qual NEGATIVE (Negative) 01/24/21 Range/Units 22:03 WBC (4.0-10.5) K/mm3 RBC (4.1-5.4) M/mm3 Hgb (12.0-16.0) gm/dl Hct (35-47) % MCV (78-100) fl MCH (26-32) pg MCHC (32-36) g/dl RDW (11.5-14.0) % Plt Count (150-450) K/mm3 MPV (7.5-11.0) fl Segmented Neutrophils (36.0-66.0) % Band Neutrophils (0.0-2.0) % Lymphocytes (Manual) (24-44) % Monocytes (Manual) (0.0-12.0) % Platelet Estimate (NORMAL) RBC Morphology Sodium (137-145) mmol/L Potassium (3.5-5.1) mmol/L Chloride (98-107) mmol/L Carbon Dioxide (22-30) mmol/L Anion Gap (5-15) MEQ/L BUN (7-17) mg/dL Creatinine (0.52-1.04) mg/dL Estimated GFR ML/MIN Glucose (74-106) mg/dL Calcium (8.4-10.2) mg/dL Total Bilirubin (0.2-1.3) mg/dL AST (14-36) U/L ALT (0-35) U/L Alkaline Phosphatase (38-126) U/L Serum Total Protein (6.3-8.2) g/dL Albumin (3.5-5.0) g/dL Lipase (23-300) U/L Urine Color YELLOW (YELLOW) Urine Appearance CLOUDY (CLEAR) Urine pH 5.0 (5-6) Ur Specific [place] 1.009 (1.005-1.025) Urine Protein 100 (Negative) Urine Ketones NEGATIVE (NEGATIVE) Urine Blood SMALL (0-5) Charles/ul Urine Nitrite NEGATIVE (NEGATIVE) Urine Bilirubin NEGATIVE (NEGATIVE) Urine Urobilinogen NEGATIVE (0-1) mg/dL Ur Leukocyte Esterase LARGE (NEGATIVE) Urine WBC (Auto) >100 (0-5) /HPF Urine RBC (Auto) 3-5 (0-2) /HPF U Epithel Cells (Auto) FEW (FEW) /HPF Urine Bacteria (Auto) PACKED (NEGATIVE) /HPF U Non-Squamous Epi Cells RARE (FEW) /HPF Urine Culture Reflexed YES (NO) Urine Glucose NEGATIVE (NEGATIVE) mg/dL Urine HCG, Qual (Negative) - Progress Progress: improved, re-examined Progress Note: 01/25/21 00:42 25 years old is evaluated for right flank pain. Patient was tachycardic 140s on presentation, given fluid bolus along with pain medications, on reevaluation feeling better. Work-up showed white count of 17, acute renal failure with a baseline creatinine of 0.8 and currently 2.0 and does have UTI. Given a dose of Rocephin. I have obtained CT abdomen pelvis without contrast which showed right pyelonephritis but no obstructive uropathy. We will continue with fluids. Discussed with Dr. Yeung, reviewed history work-up and agreed with admission. Plan discussed with patient who understand and agrees with it. Discussed with .: Aliya Will see patient in: hospital (observation) Counseled pt/family regarding: lab results, diagnosis, rad results - Departure Departure Disposition: Observation Clinical Impression: Acute pyelonephritis Acute renal failure (ARF) Qualifiers: Acute renal failure type: unspecified Qualified Code(s): N17.9 - Acute kidney failure, unspecified Condition: Stable Critical Care Time: No Referrals: BISMARK BARROW [Primary Care Provider] -
[2021-01-24] MEDS ORDERED: Zofran 4 MG/2 ML VIAL IV ONE (22:11)
[2021-01-24] MEDS ORDERED: Hydromorphone 1 mg/ml Injection ONE (22:12)
[2021-01-24] MEDS ORDERED: Zofran 4 MG/2 ML VIAL ONE (22:12)
[2021-01-24] MEDS ORDERED: Sodium Chloride 0.9% 1000 ML 1,000 ML ONE (22:12)
[2021-01-24 22:15] LABS: Hematocrit 35.4 % (35-47); Hemoglobin 11.6 gm/dl (12.0-16.0); Mean Cell Volume 85.3 fl (78-100); Mean Corpuscular Hgb Concent. 32.8 g/dl (32-36); Mean Platelet Volume 10.5 fl (7.5-11.0); Platelet Count 230 K/mm3 (150-450); Red Blood Count 4.15 M/mm3 (4.1-5.4); Red Cell Distribution Width 13.1 % (11.5-14.0); White Blood Count 17.9 K/mm3 (4.0-10.5)
[2021-01-24 22:20] LABS: Appearance CLOUDY (CLEAR); Bacteria PACKED /HPF (NEGATIVE); Bilirubin NEGATIVE (NEGATIVE); Blood SMALL Ery/ul (0-5); Epithelial Cells FEW /HPF (FEW); Glucose NEGATIVE (NEGATIVE); Ketones NEGATIVE (NEGATIVE); Leukocyte Esterase LARGE (NEGATIVE); Nitrite NEGATIVE (NEGATIVE); Non-Squamous Epithelial Cells RARE /HPF (FEW); Protein,Urine Dip 100 (Negative); Specific Gravity 1.009 (1.005-1.025); Urobilinogen NEGATIVE mg/dL (0-1); WBC >100 /HPF (0-5)
[2021-01-24 22:26] LABS: BILIRUBIN,TOTAL 0.7 mg/dL (0.2-1.3); Calcium 9.1 mg/dL (8.4-10.2); Creatinine 1 2.09 mg/dL (0.52-1.04); EST GLOMERULAR FILTRATION RATE 30.9 ML/MIN; Potassium 3.5 mmol/L (3.5-5.1); Total Protein 7.6 g/dL (6.3-8.2)
[2021-01-24 23:11] LABS: BAND 17 % (0.0-2.0); Lymphocytes 15 % (24-44); Monocyte 2 % (0.0-12.0); Neutrophils 66 % (36.0-66.0); Platelet Estimate NORMAL (NORMAL); Total Cells Counted 100
[2021-01-24] MEDS ORDERED: ROCEPHIN 2 Gm-D5w 50ML BAG** 2 G/50 ML IVPB IV STA (23:15)
[2021-01-24] MEDS ORDERED: ROCEPHIN 2 Gm-D5w 50ML BAG** 2 G/50 ML IVPB IV ONE (23:42)
[2021-01-25] MEDS ORDERED: Hydromorphone 1 mg/ml Injection IV ONE (00:44)
[2021-01-25] MEDS ORDERED: Hydromorphone 1 mg/ml Injection ONE (00:45)
[2021-01-25] MEDS: Sodium Chloride 0.9% 1000 ML 1,000 ML IV SCH ×3 (00:47→18:47)
[2021-01-25] MEDS ORDERED: BENADRYL 50 MG/ML IV ONE (01:37)
[2021-01-25] MEDS ORDERED: BENADRYL 50 MG/ML ONE (01:45)
[2021-01-25] MEDS ORDERED: TYLENOL 325 MG PO PRN (02:37)
[2021-01-25] MEDS ORDERED: Zofran 4 MG/2 ML VIAL IV PRN (02:37)
[2021-01-25] MEDS ORDERED: Hydromorphone 1 mg/ml Injection IV PRN (02:37)
[2021-01-25] MEDS ORDERED: solu-MEDROL ONE (03:56)
[2021-01-25] MEDS ORDERED: Sterile H2O 10 ml IJ ONE ×2 (03:57→08:48)
[2021-01-25] MEDS ORDERED: solu-MEDROL 80 MG, Sterile H2O 10 ml 2 ML IV ONE ×4 (04:00→10:00)
[2021-01-25 06:07] LABS: Absolute Neutrophil Ct (ANC) 11.94 (1.4-6.9); BASOPHIL % 0.1 % (0.0-0.4); Basophil (Absolute #) 0.01 (0-0.4); Eosinophil % 0.3 % (0.00-5.0); Eosinophil (Absolute #) 0.04 (0-0.5); Hematocrit 29.6 % (35-47); Hemoglobin 9.5 gm/dl (12.0-16.0); Lymphocyte (Absolute #) 0.66 (1.0-4.6); Lymphocytes % 4.9 % (24.0-44.0); Mean Cell Volume 86.3 fl (78-100); Mean Corpuscular Hemoglobin 27.7 pg (26-32); Mean Corpuscular Hgb Concent. 32.1 g/dl (32-36); Monocyte (Absolute #) 0.82 (0.0-1.3); Monocytes % 6.1 % (0.0-12.0); Neutrophil % 88.6 % (36.0-66.0); Platelet Count 175 K/mm3 (150-450); Red Blood Count 3.43 M/mm3 (4.1-5.4); White Blood Count 13.5 K/mm3 (4.0-10.5)
[2021-01-25 06:29] LABS: ANION GAP 11.2 MEQ/L (5-15); BILIRUBIN,TOTAL 0.4 mg/dL (0.2-1.3); Calcium 7.9 mg/dL (8.4-10.2); Creatinine 1 1.85 mg/dL (0.52-1.04); EST GLOMERULAR FILTRATION RATE 35.6 ML/MIN; Potassium 3.4 mmol/L (3.5-5.1)
[2021-01-25 07:58] LABS: BAND 19 % (0.0-2.0); Eosinophil 1 % (0.00-3.0); Lymphocytes 2 % (24-44); Monocyte 2 % (0.0-12.0); Neutrophils 76 % (36.0-66.0); Platelet Estimate NORMAL (NORMAL); Total Cells Counted 100
[2021-01-25] MEDS ORDERED: solu-MEDROL IV ONE (08:21)
[2021-01-25] MEDS ORDERED: STERILE WATER FOR INJECTION 20 ML IV ONE (08:47)
--- NOTE | 2021-01-25 09:45 | XRAY ---
Indication: Right flank pain. History kidney stone. Multiple contiguous axial images obtained through the abdomen and pelvis without contrast. Comparison: December 22, 2020. Lung bases are clear of infiltrate and effusion. Heart not enlarged. Noncontrasted stomach and bowel loops appear nonobstructed. Appendix not seen. Right kidney now appears moderately edematous with perinephric stranding favoring inflammatory/infectious process. No renal calculus or evidence for obstructive uropathy. Remaining liver, gallbladder, pancreas, spleen, adrenal glands, left kidney, left ureter, bladder, uterus, and aorta appear unremarkable for noncontrast exam. Osseous structures intact. Impression: New CT features favoring right pyelonephritis. Comment: Preliminary interpretation made by [facility]. No critical discrepancy.
[2021-01-25] MEDS: PROTONIX 40 MG IV IV SCH (09:54)
[2021-01-25] MEDS: Lactated Ringers 1,000 ML IV SCH (10:00)
[2021-01-25] MEDS ORDERED: Cyclobenzaprine 10 MG PO PRN (10:24)
--- NOTE | 2021-01-25 13:30 | PCM.HP ---
History of Present Illness - Chief Complaint Chief Complaint: Acute pyelonephritis History of Present Illness: is a 25 year old female pt of mine from [facility] with recent hx kidney stone who was admitted through ER for pyelonephritis and acute renal failure. She had two days of R flank pain radiating to R groin and RLQ; no fever, no dysuria. No deandre hematuria. She had some dizziness with standing. Did not eat or drink much at all for the past 3 days. In ER, her UA showed > [address] abd pelvis showed R pyelonephritis, no obstruction. WBC 17.9 and Cr 2.09 for eGFR on admission of 30.9. She was given 2g rocephin IV. UCx is pending. Last night she had dilaudid for pain then started itching. Improved with solumedrol 80mg IV. This morning she is feeling markedly better. WBC are 13.5, Cr is 1.85 and eGFR is 35.6. - Review of Systems Abdominal/Gastrointestinal: Abdominal Pain, Appetite Changes Genitourinary Symptoms: Flank Pain Musculoskeletal: Back Pain Skin: Pruritis Neurological: Dizziness Psychological: No Suicidal Ideations, No Homicidal Ideations All Other Systems: Reviewed and Negative Medications & Allergies Home Medications: Home Medication List Amitriptyline HCl 50 mg PO HS 01/25/21 [History Confirmed 01/25/21] Cyclobenzaprine HCl 10 mg [Cyclobenzaprine 10 MG] 10 mg PO TID PRN 01/25/21 [History Confirmed 01/25/21] Meloxicam 15 mg PO DAILY 01/25/21 [History Confirmed 01/25/21] Allergies/Adverse Reactions: Allergies Allergy/AdvReac Type Severity Reaction Status Date / Time latex Allergy Hives Verified 01/24/21 23:49 tetanus toxoid, adsorbed Allergy Verified 01/24/21 23:49 - Past Medical History Past Medical History: No Neurological History: No Pertinent History ENT History: No Pertinent History Cardiac History: No Pertinent History Respiratory History: Asthma Endocrine Medical History: No Pertinent History Musculoskelatal History: Osteoarthritis GI Medical History: No Pertinent History History: No Pertinent History Pyscho-Social History: No Pertinent History Reproductive Disorders: No Pertinent History Comment: OTHER PMHX: GERD, ANXIETY, DEPRESSION, kidney stone, UTIs - Female History Hx Last Menstrual Period: unknown Are you now?: (unkn) - Past Surgical History Past Surgical History: Yes Neuro Surgical History: No Pertinent History Cardiac History: No Pertinent History Respiratory Surgery: No Pertinent History GI Surgical History: No Pertinent History Genitourinary Surgical Hx: No Pertinent History Musculskeletal Surgical Hx: No Pertinent History Female Surgical History: Section Other Surgical History: had hard time waking up after anesthesia - Social History Smoking Status: Former smoker How long have you smoked: 5 yrs Exposure to second hand smoke: Yes Alcohol: None Drug Use: none - Physical Exam Vital Signs: Vital Signs - 24 hr Temp Pulse Resp BP Pulse Ox 01/25/21 12:00 97.8 F 84 16 98/57 96 01/25/21 06:45 98.4 F 100 H 16 88/51 96 01/25/21 02:52 97.5 F 131 H 18 104/59 97 01/25/21 01:00 127 H 18 99/61 98 01/25/21 00:44 99 01/25/21 00:00 130 H 18 99/61 98 01/24/21 23:00 118 H 18 105/73 99 01/24/21 22:00 98.5 F 144 H 20 145/86 99 General Appearance: no apparent distress, alert Neurologic Exam: oriented x 3, cooperative Eye Exam: eyes nml inspection Ears, Nose, Throat Exam: pharynx normal, moist mucous membranes Neck Exam: normal inspection, non-tender, No lymphadenopathy Respiratory Exam: normal breath sounds, lungs clear, No crackles/rales, No rhonchi, No wheezing Cardiovascular Exam: regular rate/rhythm, normal heart sounds, No murmur Gastrointestinal/Abdomen Exam: soft, normal bowel sounds, tenderness (generalized TTP, worse in RLQ), No distention, No mass, No guarding, No rebound Back Exam: normal inspection, CVA tenderness (on R), No rash Extremity Exam: normal inspection, No pedal edema, No swelling Skin Exam: normal color, warm, dry, No rash Results - Labs Lab/Micro Results: Lab Results-Last 24 Hours 01/24/21 01/24/21 01/24/21 Range/Units 22:03 22:11 22:11 WBC 17.9 H (4.0-10.5) K/mm3 RBC 4.15 (4.1-5.4) M/mm3 Hgb 11.6 L (12.0-16.0) gm/dl Hct 35.4 (35-47) % MCV 85.3 (78-100) fl MCH 28.0 (26-32) pg MCHC 32.8 (32-36) g/dl RDW 13.1 (11.5-14.0) % Plt Count 230 (150-450) K/mm3 MPV 10.5 (7.5-11.0) fl Gran % (36.0-66.0) % Eos # (Auto) (0-0.5) Absolute Lymphs (auto) (1.0-4.6) Absolute Monos (auto) (0.0-1.3) Lymphocytes % (24.0-44.0) % Monocytes % (0.0-12.0) % Eosinophils % (0.00-5.0) % Basophils % (0.0-0.4) % Absolute Granulocytes (1.4-6.9) Segmented Neutrophils 66 (36.0-66.0) % Band Neutrophils 17 H (0.0-2.0) % Lymphocytes (Manual) 15 L (24-44) % Monocytes (Manual) 2 (0.0-12.0) % Eosinophils (Manual) (0.00-3.0) % Basophils # (0-0.4) Platelet Estimate NORMAL (NORMAL) RBC Morphology NORMAL Sodium (137-145) mmol/L Potassium (3.5-5.1) mmol/L Chloride (98-107) mmol/L Carbon Dioxide (22-30) mmol/L Anion Gap (5-15) MEQ/L BUN (7-17) mg/dL Creatinine (0.52-1.04) mg/dL Estimated GFR ML/MIN Glucose (74-106) mg/dL Calcium (8.4-10.2) mg/dL Total Bilirubin (0.2-1.3) mg/dL AST (14-36) U/L ALT (0-35) U/L Alkaline Phosphatase (38-126) U/L Serum Total Protein (6.3-8.2) g/dL Albumin (3.5-5.0) g/dL Lipase (23-300) U/L Urine Color YELLOW (YELLOW) Urine Appearance CLOUDY (CLEAR) Urine pH 5.0 (5-6) Ur Specific [place] 1.009 (1.005-1.025) Urine Protein 100 (Negative) Urine Ketones NEGATIVE (NEGATIVE) Urine Blood SMALL (0-5) Charles/ul Urine Nitrite NEGATIVE (NEGATIVE) Urine Bilirubin NEGATIVE (NEGATIVE) Urine Urobilinogen NEGATIVE (0-1) mg/dL Ur Leukocyte Esterase LARGE (NEGATIVE) Urine WBC (Auto) >100 (0-5) /HPF Urine RBC (Auto) 3-5 (0-2) /HPF U Epithel Cells (Auto) FEW (FEW) /HPF Urine Bacteria (Auto) PACKED (NEGATIVE) /HPF U Non-Squamous Epi Cells RARE (FEW) /HPF Urine Culture Reflexed YES (NO) Urine Glucose NEGATIVE (NEGATIVE) mg/dL Urine HCG, Qual NEGATIVE (Negative) SARS-CoV-2 (PCR) (NEGATIVE) 01/24/21 01/25/21 01/25/21 Range/Units 22:11 00:50 05:37 WBC 13.5 H (4.0-10.5) K/mm3 RBC 3.43 L (4.1-5.4) M/mm3 Hgb 9.5 L (12.0-16.0) gm/dl Hct 29.6 L (35-47) % MCV 86.3 (78-100) fl MCH 27.7 (26-32) pg MCHC 32.1 (32-36) g/dl RDW 13.0 (11.5-14.0) % Plt Count 175 (150-450) K/mm3 MPV 11.0 (7.5-11.0) fl Gran % 88.6 H (36.0-66.0) % Eos # (Auto) 0.04 (0-0.5) Absolute Lymphs (auto) 0.66 L (1.0-4.6) Absolute Monos (auto) 0.82 (0.0-1.3) Lymphocytes % 4.9 L (24.0-44.0) % Monocytes % 6.1 (0.0-12.0) % Eosinophils % 0.3 (0.00-5.0) % Basophils % 0.1 (0.0-0.4) % Absolute Granulocytes 11.94 H (1.4-6.9) Segmented Neutrophils 76 H (36.0-66.0) % Band Neutrophils 19 H (0.0-2.0) % Lymphocytes (Manual) 2 L (24-44) % Monocytes (Manual) 2 (0.0-12.0) % Eosinophils (Manual) 1 (0.00-3.0) % Basophils # 0.01 (0-0.4) Platelet Estimate NORMAL (NORMAL) RBC Morphology NORMAL Sodium 132 L (137-145) mmol/L Potassium 3.5 (3.5-5.1) mmol/L Chloride 97 L (98-107) mmol/L Carbon Dioxide 22 (22-30) mmol/L Anion Gap 17.0 H (5-15) MEQ/L BUN 20 H (7-17) mg/dL Creatinine 2.09 H (0.52-1.04) mg/dL Estimated GFR 30.9 ML/MIN Glucose 111 H (74-106) mg/dL Calcium 9.1 (8.4-10.2) mg/dL Total Bilirubin 0.70 (0.2-1.3) mg/dL AST 18 (14-36) U/L ALT 16 (0-35) U/L Alkaline Phosphatase 88 (38-126) U/L Serum Total Protein 7.6 (6.3-8.2) g/dL Albumin 4.0 (3.5-5.0) g/dL Lipase 11 L (23-300) U/L Urine Color (YELLOW) Urine Appearance (CLEAR) Urine pH (5-6) Ur Specific [place] (1.005-1.025) Urine Protein (Negative) Urine Ketones (NEGATIVE) Urine Blood (0-5) Charles/ul Urine Nitrite (NEGATIVE) Urine Bilirubin (NEGATIVE) Urine Urobilinogen (0-1) mg/dL Ur Leukocyte Esterase (NEGATIVE) Urine WBC (Auto) (0-5) /HPF Urine RBC (Auto) (0-2) /HPF U Epithel Cells (Auto) (FEW) /HPF Urine Bacteria (Auto) (NEGATIVE) /HPF U Non-Squamous Epi Cells (FEW) /HPF Urine Culture Reflexed (NO) Urine Glucose (NEGATIVE) mg/dL Urine HCG, Qual (Negative) SARS-CoV-2 (PCR) NEGATIVE (NEGATIVE) 01/25/21 Range/Units 05:37 WBC (4.0-10.5) K/mm3 RBC (4.1-5.4) M/mm3 Hgb (12.0-16.0) gm/dl Hct (35-47) % MCV (78-100) fl MCH (26-32) pg MCHC (32-36) g/dl RDW (11.5-14.0) % Plt Count (150-450) K/mm3 MPV (7.5-11.0) fl Gran % (36.0-66.0) % Eos # (Auto) (0-0.5) Absolute Lymphs (auto) (1.0-4.6) Absolute Monos (auto) (0.0-1.3) Lymphocytes % (24.0-44.0) % Monocytes % (0.0-12.0) % Eosinophils % (0.00-5.0) % Basophils % (0.0-0.4) % Absolute Granulocytes (1.4-6.9) Segmented Neutrophils (36.0-66.0) % Band Neutrophils (0.0-2.0) % Lymphocytes (Manual) (24-44) % Monocytes (Manual) (0.0-12.0) % Eosinophils (Manual) (0.00-3.0) % Basophils # (0-0.4) Platelet Estimate (NORMAL) RBC Morphology Sodium 130 L (137-145) mmol/L Potassium 3.4 L (3.5-5.1) mmol/L Chloride 101 (98-107) mmol/L Carbon Dioxide 21 L (22-30) mmol/L Anion Gap 11.2 (5-15) MEQ/L BUN 22 H (7-17) mg/dL Creatinine 1.85 H (0.52-1.04) mg/dL Estimated GFR 35.6 ML/MIN Glucose 138 H (74-106) mg/dL Calcium 7.9 L (8.4-10.2) mg/dL Total Bilirubin 0.40 (0.2-1.3) mg/dL AST 15 (14-36) U/L ALT 12 (0-35) U/L Alkaline Phosphatase 63 (38-126) U/L Serum Total Protein 6.0 L (6.3-8.2) g/dL Albumin 3.0 L (3.5-5.0) g/dL Lipase (23-300) U/L Urine Color (YELLOW) Urine Appearance (CLEAR) Urine pH (5-6) Ur Specific [place] (1.005-1.025) Urine Protein (Negative) Urine Ketones (NEGATIVE) Urine Blood (0-5) Charles/ul Urine Nitrite (NEGATIVE) Urine Bilirubin (NEGATIVE) Urine Urobilinogen (0-1) mg/dL Ur Leukocyte Esterase (NEGATIVE) Urine WBC (Auto) (0-5) /HPF Urine RBC (Auto) (0-2) /HPF U Epithel Cells (Auto) (FEW) /HPF Urine Bacteria (Auto) (NEGATIVE) /HPF U Non-Squamous Epi Cells (FEW) /HPF Urine Culture Reflexed (NO) Urine Glucose (NEGATIVE) mg/dL Urine HCG, Qual (Negative) SARS-CoV-2 (PCR) (NEGATIVE) Microbiology 01/25/21 01:06 Blood Culture - Preliminary Blood NO GROWTH TO DATE 01/25/21 00:00 Blood Culture - Preliminary Blood NO GROWTH TO DATE - Radiology Impressions Radiology Exams & Impressions: Radiology Procedures Category Date Time Status ABDOMEN AND PELVIS W/0 CONTRAS [CT] Stat Exams 01/24/21 22:03 Completed Assessment/Plan (1) Acute pyelonephritis Current Visit: Yes Status: Acute Assessment & Plan: Pt feeling better, on 2g rocephin IV daily. Needs to stay until her culture results are back and she is taking po well. Code(s): N10 - ACUTE PYELONEPHRITIS (2) Acute renal failure (ARF) Current Visit: Yes Status: Acute Qualifiers: Acute renal failure type: unspecified Qualified Code(s): N17.9 - Acute kidney failure, unspecified Assessment & Plan: Giving another bolus and recheck BMP this afternoon and in the morning. Previously normal renal function. Would monitor renal function outpatient and discuss possible referral to nephrology after this acute episode.
[2021-01-25 17:07] LABS: ANION GAP 13.3 MEQ/L (5-15); Calcium 8.8 mg/dL (8.4-10.2); Creatinine 1 1.26 mg/dL (0.52-1.04); EST GLOMERULAR FILTRATION RATE 55.5 ML/MIN; Potassium 4.2 mmol/L (3.5-5.1)
[2021-01-25] MEDS ORDERED: ROCEPHIN 2 Gm-D5w 50ML BAG** 2 G/50 ML IVPB IV SCH (22:00)
[2021-01-25] MEDS ORDERED: Lactated Ringers 1,000 ML IV ONE (23:02)
[2021-01-26 05:03] LABS: Basophil (Absolute #) 0 (0-0.4); Eosinophil (Absolute #) 0 (0-0.5); Hematocrit 31.9 % (35-47); Lymphocyte (Absolute #) 1.33 (1.0-4.6); Lymphocytes % 7.7 % (24.0-44.0); Mean Cell Volume 87.2 fl (78-100); Mean Corpuscular Hemoglobin 27.3 pg (26-32); Mean Corpuscular Hgb Concent. 31.3 g/dl (32-36); Mean Platelet Volume 11.6 fl (7.5-11.0); Monocyte (Absolute #) 0.77 (0.0-1.3); Monocytes % 4.5 % (0.0-12.0); Neutrophil % 87.8 % (36.0-66.0); Platelet Count 204 K/mm3 (150-450); Red Blood Count 3.66 M/mm3 (4.1-5.4); Red Cell Distribution Width 13.6 % (11.5-14.0); White Blood Count 17.2 K/mm3 (4.0-10.5)
[2021-01-26] MEDS: Sodium Chloride 0.9% 1000 ML 1,000 ML IV SCH ×2 (05:05→13:25)
[2021-01-26] MEDS: Lactated Ringers 1,000 ML IV SCH ×2 (05:13→05:14)
[2021-01-26 05:27] LABS: BLOOD UREA NITROGEN 20 mg/dL (7-17); CHLORIDE 111 mmol/L (98-107); Calcium 8.5 mg/dL (8.4-10.2); Carbon Dioxide 19 mmol/L (22-30); Creatinine 1 1.14 mg/dL (0.52-1.04); EST GLOMERULAR FILTRATION RATE > 60.0 ML/MIN; Glucose 142 mg/dL (74-106); Potassium 3.9 mmol/L (3.5-5.1); SODIUM 140 mmol/L (137-145)
[2021-01-26] MEDS: PROTONIX 40 MG IV IV SCH (08:59)
[2021-01-26 10:57] LABS: Appearance SLIGHTLY CLOUDY (CLEAR); Bilirubin NEGATIVE (NEGATIVE); Blood SMALL Ery/ul (0-5); Glucose NEGATIVE (NEGATIVE); Ketones NEGATIVE (NEGATIVE); Leukocyte Esterase TRACE (NEGATIVE); Nitrite NEGATIVE (NEGATIVE); Protein,Urine Dip NEGATIVE (Negative); Specific Gravity 1.009 (1.005-1.025); Urobilinogen NEGATIVE mg/dL (0-1)
[2021-01-26 11:03] LABS: Mucus SLIGHT /HPF (NEGATIVE)
[2021-01-26 11:04] LABS: Bacteria FEW /HPF (NEGATIVE); Epithelial Cells MODERATE /HPF (FEW)
[2021-01-26] MEDS ORDERED: DULCOLAX 5 MG PO PRN (11:16)
[2021-01-26 11:59] LABS: CHLAMYDIA DNA NOT DETECTED (NEGATIVE); GC DNA Probe NOT DETECTED (NEGATIVE)
[2021-01-26 12:12] VITALS: O2SAT 99
--- NOTE | 2021-01-26 13:20 | PCM.NOTE ---
Date and Time: 01/26/21 1315 Subjective Assessment: Patient states she is feeling so much better,has eaten some fruit and drinking fluids. Urine culture grew gram neg bacteria with ID /sens pending.States she really needs to go home to her 3 yr old son and is teary talking about him. We discussed that her culture is still pending but UA repeated today was almost normal on her current IV med Rocephin . WBC is elevated possibly from IV steroid. since clinically improved. Objective Exam General Appearance: no apparent distress Neurologic Exam: alert, oriented x 3, cooperative, normal mood/affect (teary at the thought staying another day(has a 3 yr old at home)) Skin Exam: normal color, warm Respiratory Exam: normal breath sounds Cardiovascular Exam: regular rate/rhythm Gastrointestinal/Abdomen Exam: soft, normal bowel sounds, tenderness (just above umbilicus) Extremity Exam: normal inspection Back Exam: other (no CVA tenderness) OBJECTIVE DATA Vital Signs: Vital Signs - 24 hr Temp Pulse Resp BP Pulse Ox 01/26/21 12:00 97.9 F 71 19 134/94 99 01/26/21 07:57 97.4 F 109 H 19 134/74 97 01/26/21 04:00 97.7 F 76 19 114/71 94 L 01/25/21 23:41 98.1 F 83 16 111/67 96 01/25/21 19:46 97.9 F 84 16 119/77 98 01/25/21 16:00 97.4 F 80 18 108/67 100 Pain Assessment - Last Documented Pain Intensity 3 Pain Scale Used 0-10 Pain Scale Intake and Output: Intake & Output 01/24/21 01/25/21 01/26/21 01/27/21 11:59 11:59 11:59 11:59 Intake Total 200 6248 240 Output Total 900 Balance 200 5348 240 Weight 73.9 kg Lab Results: Lab Results-Last 24 Hours 01/25/21 01/26/21 01/26/21 Range/Units 16:48 04:40 04:40 WBC 17.2 H (4.0-10.5) K/mm3 RBC 3.66 L (4.1-5.4) M/mm3 Hgb 10.0 L (12.0-16.0) gm/dl Hct 31.9 L (35-47) % MCV 87.2 (78-100) fl MCH 27.3 (26-32) pg MCHC 31.3 L (32-36) g/dl RDW 13.6 (11.5-14.0) % Plt Count 204 (150-450) K/mm3 MPV 11.6 H (7.5-11.0) fl Gran % 87.8 H (36.0-66.0) % Eos # (Auto) 0 (0-0.5) Absolute Lymphs (auto) 1.33 (1.0-4.6) Absolute Monos (auto) 0.77 (0.0-1.3) Lymphocytes % 7.7 L (24.0-44.0) % Monocytes % 4.5 (0.0-12.0) % Eosinophils % 0.0 (0.00-5.0) % Basophils % 0.0 (0.0-0.4) % Absolute Granulocytes 15.10 H (1.4-6.9) Basophils # 0 (0-0.4) Sodium 137 D 140 (137-145) mmol/L Potassium 4.2 D 3.9 (3.5-5.1) mmol/L Chloride 107 111 H (98-107) mmol/L Carbon Dioxide 20 L 19 L (22-30) mmol/L Anion Gap 13.3 14.0 (5-15) MEQ/L BUN 19 H 20 H (7-17) mg/dL Creatinine 1.26 H 1.14 H (0.52-1.04) mg/dL Estimated GFR 55.5 > 60.0 ML/MIN Glucose 137 H 142 H (74-106) mg/dL Calcium 8.8 8.5 (8.4-10.2) mg/dL Urine Color (YELLOW) Urine Appearance (CLEAR) Urine pH (5-6) Ur Specific [place] (1.005-1.025) Urine Protein (Negative) Urine Ketones (NEGATIVE) Urine Blood (0-5) Charles/ul Urine Nitrite (NEGATIVE) Urine Bilirubin (NEGATIVE) Urine Urobilinogen (0-1) mg/dL Ur Leukocyte Esterase (NEGATIVE) Urine WBC (Auto) (0-5) /HPF Urine RBC (Auto) (0-2) /HPF U Epithel Cells (Auto) (FEW) /HPF Urine Bacteria (Auto) (NEGATIVE) /HPF Urine Mucus (Auto) (NEGATIVE) /HPF Urine Culture Reflexed (NO) Urine Glucose (NEGATIVE) mg/dL Chlamydia DNA Probe (NEGATIVE) N.gonorrhoeae DNA Probe (NEGATIVE) 01/26/21 01/26/21 Range/Units 10:00 10:00 WBC (4.0-10.5) K/mm3 RBC (4.1-5.4) M/mm3 Hgb (12.0-16.0) gm/dl Hct (35-47) % MCV (78-100) fl MCH (26-32) pg MCHC (32-36) g/dl RDW (11.5-14.0) % Plt Count (150-450) K/mm3 MPV (7.5-11.0) fl Gran % (36.0-66.0) % Eos # (Auto) (0-0.5) Absolute Lymphs (auto) (1.0-4.6) Absolute Monos (auto) (0.0-1.3) Lymphocytes % (24.0-44.0) % Monocytes % (0.0-12.0) % Eosinophils % (0.00-5.0) % Basophils % (0.0-0.4) % Absolute Granulocytes (1.4-6.9) Basophils # (0-0.4) Sodium (137-145) mmol/L Potassium (3.5-5.1) mmol/L Chloride (98-107) mmol/L Carbon Dioxide (22-30) mmol/L Anion Gap (5-15) MEQ/L BUN (7-17) mg/dL Creatinine (0.52-1.04) mg/dL Estimated GFR ML/MIN Glucose (74-106) mg/dL Calcium (8.4-10.2) mg/dL Urine Color YELLOW (YELLOW) Urine Appearance SLIGHTLY CLOUDY (CLEAR) Urine pH 6.0 (5-6) Ur Specific [place] 1.009 (1.005-1.025) Urine Protein NEGATIVE (Negative) Urine Ketones NEGATIVE (NEGATIVE) Urine Blood SMALL (0-5) Charles/ul Urine Nitrite NEGATIVE (NEGATIVE) Urine Bilirubin NEGATIVE (NEGATIVE) Urine Urobilinogen NEGATIVE (0-1) mg/dL Ur Leukocyte Esterase TRACE (NEGATIVE) Urine WBC (Auto) 3-5 (0-5) /HPF Urine RBC (Auto) 3-5 (0-2) /HPF U Epithel Cells (Auto) MODERATE (FEW) /HPF Urine Bacteria (Auto) FEW (NEGATIVE) /HPF Urine Mucus (Auto) SLIGHT (NEGATIVE) /HPF Urine Culture Reflexed NO (NO) Urine Glucose NEGATIVE (NEGATIVE) mg/dL Chlamydia DNA Probe NOT DETECTED (NEGATIVE) N.gonorrhoeae DNA Probe NOT DETECTED (NEGATIVE) Radiology Exams: Radiology Procedures Category Date Time Status ABDOMEN AND PELVIS W/0 CONTRAS [CT] Stat Exams 01/24/21 22:03 Completed Assessment/Plan (1) Acute pyelonephritis Status: Acute Assessment & Plan: improved clinically on IV Rocephin and IV fluids. WBC still elevated but repeat UA greatly improved. Code(s): N10 - ACUTE PYELONEPHRITIS (2) Volume depletion Status: Resolved Code(s): E86.9 - VOLUME DEPLETION, UNSPECIFIED (3) Hyponatremia Status: Resolved Code(s): E87.1 - HYPO-OSMOLALITY AND HYPONATREMIA
[2021-01-26] MEDS ORDERED: ROCEPHIN 2 Gm-D5w 50ML BAG** 2 G/50 ML IVPB IV SCH (16:00)
[2021-01-26 16:31] VITALS: BP 136/93; PULSE 78
== END 2021-01-26 16:46 | disposition home or self-care (01) ==
LOC: ED 21:50 → MED SURG 01-25 02:29 → INTOOBSV 01-25 13:31 → OBSVTOIN 01-25 13:31
PROVIDERS: ADMIT Family Medicine; ATTEND Family Medicine
DX: N10 Acute pyelonephritis (principal); R42 Dizziness and giddiness; N17.9 Acute kidney failure, unspecified; Z79.899 Other long term (current) drug therapy; E86.9 Volume depletion, unspecified; E87.1 Hypo-osmolality and hyponatremia; Z20.822 Contact with and (suspected) exposure to COVID-19
CPT/HCPCS: 36000; 36415; 74176; 80048; 80053; 81001; 83690; 84703; 85025; 87040; 87077; 87086; 87186; 87491; 87591; 93268; 96365; 96374; 96375; 96376; 99285; U0003; J0696; J1170; J1200; J2405; J2920; J2930; A9270-GY

== ENCOUNTER 2021-06-29 05:57 | Day surgery (SDC) | payer OTHER ==
[2021-06-29] MEDS ORDERED: Lactated Ringers 1,000 ML IV SCH (06:30)
[2021-06-29 08:14] VITALS: O2SAT 95
[2021-06-29] MEDS ORDERED: Versed 2 MG/2 ML Injection ONE (08:29)
[2021-06-29] MEDS ORDERED: Xylocaine-Mpf 2% 5 Ml Vial ONE (08:29)
[2021-06-29] MEDS ORDERED: DIPRIVAN 200 MG/20 ML IV ONE (08:29)
[2021-06-29 08:49] VITALS: BP 132/78; PULSE 78
--- NOTE | 2021-06-29 11:52 | OP ---
SURGERY DATE/TIME: 06/29/2021 0733 PREOPERATIVE DIAGNOSIS: Epigastric pain. POSTOPERATIVE DIAGNOSIS: Mild gastritis. PROCEDURE: Esophagogastroduodenoscopy with cold forceps biopsy. SURGEON: Dr. Leal. ANESTHESIA: Medications were given by the anesthesia department. BRIEF HISTORY: The patient is a 25-year-old white female who reports she has been having epigastric pain for the past five years. She has been taking omeprazole. She reports it mostly just hurts when she gets hit in the stomach. She said she has a very active toddler who apparently she wrestles around with. The patient denies any use of any nonsteroidal anti-inflammatory medications. She is felt the need to have endoscopic evaluation. She was appraised of the risks of the procedure including the risk of perforation, phlebitis, untoward reaction to medication, bleeding, missed lesions or sore throat. The patient verbalized her understanding and desired to have the procedure performed. DESCRIPTION OF PROCEDURE: The patient was given the medications by the anesthesia department. She had continuous pulse oximetry, ECG monitoring, intermittent blood pressure monitoring during the examination. She was placed in the left lateral decubitus position. A bite block was placed and the flexible Olympus gastroscope was used to intubate the oropharynx. The esophagus was easily intubated and appeared to be normal throughout its length. The gastroesophageal junction was inspected and found to be essentially normal. The scope is passed in the stomach where normal gastric rugal folds were seen and these distended nicely with insufflation of air. The scope was passed along the greater curvature of the stomach to the antrum. There appeared to be some mild erythema here. The pylorus encountered and intubated. The duodenum inspected and found to be normal. The scope is withdrawn towards the stomach again. A retroflex view was obtained of the lesser curvature, fundus and cardia regions of the stomach and these appeared to be essentially normal also with no significant hiatal hernia noted. The scope was redirected towards the gastric antrum and biopsies were obtained to rule out the presence of Helicobacter pylori-type organisms and confirm the presence of gastritis. The scope was removed from the patient who tolerated the procedure well and was sent back to outpatient recovery in good condition.
== END 2021-06-29 08:51 | disposition home or self-care (01) ==
LOC: SDC 05:57
PROVIDERS: ATTEND Family Medicine
DX: K29.70 Gastritis, unspecified, without bleeding (principal); R10.13 Epigastric pain
CPT/HCPCS: 84703; J2250; J2704

== ENCOUNTER 2021-09-08 23:50 | Emergency (ER) | payer OTHER ==
--- NOTE | 2021-09-09 00:09 | ERPHSYRPT ---
- History of Present Illness Time Seen by Provider: 09/09/21 00:08 Historian: patient Exam Limitations: no limitations Patient Subjective Stated Complaint: pt states "My chest started hurint about 15 minutes ago before I went to bed and it shoots to my left arm" Triage Nursing Assessment: Pt ambulates to cot by self, pt alert and oriented x3, skin pwd, pt c/o chest pain that radiates to L arm that started about 15 mins ago, pt rating pain 4/10, pt was going to bed when chest pain started and it is describing it as "squeezing" pain, pt has hx of gerd Physician History: Patient 25-year-old female presents to emergency department for evaluation of chest pain radiating to her left arm. Patient states she was preparing to go to bed when symptoms started. Pain started approximately 15 minutes prior to arrival. Pain described as a squeezing sensation rated 4 out of 10. No associated nausea vomiting or diaphoresis. No trauma. No fever. No cough. Patient denies history of the same. Patient states that she has a history of GERD she is otherwise healthy. Significant other at bedside. Patient voices no other complaints or concerns at this time. Timing/Duration: today Activities at Onset: none Quality: other (Squeezing sensation) Location: substernal Chest Pain Radiation: arm Severity of Pain-Max: moderate Severity of Pain-Current: mild Modifying Factors: Improves With: nothing Associated Symptoms: denies symptoms, No nausea, No vomiting, No palpitations, No heartburn, No abdominal pain, No shortness of breath, No cough, No hurts to breathe, No diaphoresis, No chills, No fever, No dizziness Prior Chest Pain/Cardiac Workup: no prior chest pain Nitro Today/Relief: no nitro taken today Aspirin Treatment Today: no aspirin today Allergies/Adverse Reactions: tetanus toxoid, adsorbed Allergy (Severe, Verified 09/08/21 23:52) Swelling latex Allergy (Verified 09/08/21 23:52) Hives Home Medications: Amitriptyline HCl 75 mg PO HS 01/25/21 [History] Omeprazole 40 mg PO DAILY 06/25/21 [History] Hx Tetanus, Diphtheria Vaccination/Date Given: No (allergy) Hx Influenza Vaccination/Date Given: No Hx Pneumococcal Vaccination/Date Given: No Immunizations Up to Date: Yes Travel Risk - International Travel Have you traveled outside of the country in past 3 weeks: No - Coronavirus Screening Are you exhibiting any of the following symptoms?: No Close contact with a COVID-19 positive Pt in past 14-21 Days: No - Vaccine Status Have you recieved a Covid-19 vaccination: No - Review of Systems Constitutional: No Symptoms, No Fever, No Chills Eyes: No Symptoms Ears, Nose, & Throat: No Symptoms Respiratory: No Symptoms, No Cough, No Dyspnea Cardiac: No Symptoms, No Chest Pain, No Edema, No Syncope Abdominal/Gastrointestinal: No Symptoms, No Abdominal Pain, No Nausea, No Vomiting, No Diarrhea Genitourinary Symptoms: No Symptoms, No Dysuria Musculoskeletal: No Symptoms, No Back Pain, No Neck Pain Skin: No Symptoms, No Rash Neurological: No Symptoms, No Dizziness, No Focal Weakness, No Sensory Changes Psychological: No Symptoms Endocrine: No Symptoms Hematologic/Lymphatic: No Symptoms Immunological/Allergic: No Symptoms All Other Systems: Reviewed and Negative - Past Medical History Pertinent Past Medical History: Yes Neurological History: No Pertinent History ENT History: No Pertinent History Cardiac History: No Pertinent History Respiratory History: Asthma Endocrine Medical History: No Pertinent History Musculoskeletal History: Osteoarthritis GI Medical History: GERD History: No Pertinent History Psycho-Social History: Anxiety, Depression Female Reproductive Disorders: No Pertinent History Other Medical History: OTHER PMHX: GERD, ANXIETY, DEPRESSION, kidney stone, UTIs, hx back problems - Past Surgical History Past Surgical History: Yes Neuro Surgical History: No Pertinent History Cardiac: No Pertinent History Respiratory: No Pertinent History Gastrointestinal: No Pertinent History Genitourinary: No Pertinent History Musculoskeletal: No Pertinent History Female Surgical History: Section Other Surgical History: had hard time waking up after anesthesia - Social History Smoking Status: Current every day smoker How long have you smoked: 5 yrs Exposure to second hand smoke: No Drug Use: marijuana Patient Lives Alone: No - Female History Hx Last Menstrual Period: 09/08/2021 Hx Now: No - Nursing Vital Signs Nursing Vital Signs: Initial Vital Signs Temperature 97.3 F 09/08/21 23:58 Pulse Rate 110 H 09/08/21 23:58 Respiratory Rate 16 09/08/21 23:58 Blood Pressure 134/93 09/08/21 23:58 O2 Sat by Pulse Oximetry 98 09/08/21 23:58 Pain Scale Pain Intensity 4 - Physical Exam General Appearance: no apparent distress, alert Eye Exam: PERRL/EOMI, eyes nml inspection Ears, Nose, Throat Exam: normal ENT inspection, TMs normal, pharynx normal, moist mucous membranes Neck Exam: normal inspection, non-tender, supple, full range of motion Respiratory Exam: normal breath sounds, lungs clear, airway intact, No respi ratory distress Cardiovascular Exam: regular rate/rhythm, normal heart sounds, normal peripheral pulses Gastrointestinal/Abdomen Exam: soft, normal bowel sounds, No tenderness, No mass Back Exam: normal inspection, No CVA tenderness, No vertebral tenderness Extremity Exam: normal inspection, normal range of motion Neurologic Exam: alert, oriented x 3, cooperative, normal mood/affect, sensation nml, No motor deficits Skin Exam: normal color, warm, dry SpO2 Interpretation: normal SpO2: 98 O2 Delivery: Room Air - Course Nursing assessment & vital signs reviewed: Yes EKG Interpreted by Me: RATE (105), Sinus Tach, NORMAL AXIS, NORMAL INTERVALS - Radiology Exams Chest X-ray Interpretation: Interpreted by me (Normal chest x-ray) Ordered Tests: Active Orders 24 hr Category Date Time Status [employer] Teacher STAT Care 09/08/21 23:59 Active EKG-ER Only STAT Care 09/08/21 23:58 Active IV Insertion STAT Care 09/08/21 23:58 Active Pulse Oximetry (ED) STAT Care 09/08/21 23:58 Active CHEST 1 VIEW (PORTABLE) Stat Exams 09/08/21 23:59 Taken HCG,QUALITATIVE URINE Stat Lab 09/09/21 00:30 Completed TROPONIN Q3H Lab 09/09/21 02:36 Completed TROPONIN Q3H Lab 09/09/21 05:59 Ordered TROPONIN Q3H Lab 09/09/21 08:59 Ordered TROPONIN Q3H Lab 09/09/21 11:59 Ordered Lab/Rad Data: Laboratory Result Diagrams 09/08/21 00:24 09/08/21 00:24 Laboratory Results 09/09/21 09/09/21 09/08/21 Range/Units 02:36 00:30 00:24 WBC (4.0-10.5) x10^3/uL RBC (4.1-5.4) x10^6/uL Hgb (12.0-16.0) g/dL Hct (35-47) % MCV (78-100) fL MCH (26-32) pg MCHC (32-36) g/dL RDW (11.5-14.0) % Plt Count (150-450) x10^3/uL MPV (7.5-11.0) fL Gran % (36.0-66.0) % Immature Gran % (Auto) (0.00-0.4) % Nucleat RBC Rel Count (0.00-0.1) % Eos # (Auto) (0-0.5) x10^3/uL Immature Gran # (Auto) (0.00-0.03) x10^3u/L Absolute Lymphs (auto) (1.0-4.6) x10^3/uL Absolute Monos (auto) (0.0-1.3) x10^3/uL Absolute Nucleated RBC (0.00-0.01) x10^3u/L Lymphocytes % (24.0-44.0) % Monocytes % (0.0-12.0) % Eosinophils % (0.00-5.0) % Basophils % (0.0-0.4) % Absolute Granulocytes (1.4-6.9) x10^3/uL Basophils # (0-0.4) x10^3/uL D-Dimer (0.0-0.50) mg/L Sodium (137-145) mmol/L Potassium (3.5-5.1) mmol/L Chloride (98-107) mmol/L Carbon Dioxide (22-30) mmol/L Anion Gap (5-15) MEQ/L BUN (7-17) mg/dL Creatinine (0.52-1.04) mg/dL Estimated GFR ML/MIN Glucose (74-106) mg/dL Calcium (8.4-10.2) mg/dL Total Bilirubin (0.2-1.3) mg/dL AST (14-36) U/L ALT (0-35) U/L Alkaline Phosphatase (38-126) U/L Troponin I < 0.012 < 0.012 (0.000-0.034) ng/mL NT-Pro-B Natriuret Pep < 11.5 (0-450) pg/mL Serum Total Protein (6.3-8.2) g/dL Albumin (3.5-5.0) g/dL Urine HCG, Qual NEGATIVE (Negative) 06/14/22 06/14/22 06/14/22 Range/Units 00:24 00:24 00:24 WBC 8.6 (4.0-10.5) x10^3/uL RBC 4.28 (4.1-5.4) x10^6/uL Hgb 11.6 L (12.0-16.0) g/dL Hct 36.8 (35-47) % MCV 86.0 (78-100) fL MCH 27.1 (26-32) pg MCHC 31.5 L (32-36) g/dL RDW 12.5 (11.5-14.0) % Plt Count 315 (150-450) x10^3/uL MPV 10.5 (7.5-11.0) fL Gran % 52.2 (36.0-66.0) % Immature Gran % (Auto) 0.2 (0.00-0.4) % Nucleat RBC Rel Count 0.0 (0.00-0.1) % Eos # (Auto) 0.20 (0-0.5) x10^3/uL Immature Gran # (Auto) 0.02 (0.00-0.03) x10^3u/L Absolute Lymphs (auto) 3.24 (1.0-4.6) x10^3/uL Absolute Monos (auto) 0.60 (0.0-1.3) x10^3/uL Absolute Nucleated RBC 0.00 (0.00-0.01) x10^3u/L Lymphocytes % 37.7 (24.0-44.0) % Monocytes % 7.0 (0.0-12.0) % Eosinophils % 2.3 (0.00-5.0) % Basophils % 0.6 (0.0-0.4) % Absolute Granulocytes 4.48 (1.4-6.9) x10^3/uL Basophils # 0.05 (0-0.4) x10^3/uL D-Dimer 0.19 (0.0-0.50) mg/L Sodium 138 (137-145) mmol/L Potassium 3.7 (3.5-5.1) mmol/L Chloride 102 (98-107) mmol/L Carbon Dioxide 29 (22-30) mmol/L Anion Gap 10.9 (5-15) MEQ/L BUN 6 L (7-17) mg/dL Creatinine 0.91 (0.52-1.04) mg/dL Estimated GFR > 60.0 ML/MIN Glucose 105 (74-106) mg/dL Calcium 9.4 (8.4-10.2) mg/dL Total Bilirubin 0.20 (0.2-1.3) mg/dL AST 18 (14-36) U/L ALT 12 (0-35) U/L Alkaline Phosphatase 57 (38-126) U/L Troponin I (0.000-0.034) ng/mL NT-Pro-B Natriuret Pep (0-450) pg/mL Serum Total Protein 6.9 (6.3-8.2) g/dL Albumin 4.0 (3.5-5.0) g/dL Urine HCG, Qual (Negative) - Progress Progress: improved Air Movement: good Progress Note: Patient reassessed. She remains asymptomatic. Work-up negative. D-dimer negative. Troponin negative x2. Chest x-ray negative. EKG normal sinus rhythm. No indication for further work-up this time. Patient has no significant cardiovascular risk factors. She is 25 years old and otherwise healthy. Will discharge at this time. Patient agrees to follow-up with primary care doctor within 48 hours for evaluation. Portions of this note were created with voice recognition technology. There may be grammatical, spelling, punctuation or sound alike errors 09/09/21 03:20 Blood Culture(s) Obtained: No Antibiotics given: No Counseled pt/family regarding: lab results, diagnosis, need for follow-up, rad results - Departure Departure Disposition: Home Clinical Impression: Chest pain Condition: Stable Critical Care Time: No Referrals: BISMARK BARROW [Primary Care Provider] - Follow up/PCP as directed Additional Instructions: Discharge/Care Plan JOE ROMAN was seen on 09/09/21 in the Emergency Room. The patient was counseled regarding Diagnosis,Lab results, Imaging studies, need for follow up and when to return to the Emergency Room. Prescriptions given: Discharge Note I have spoken with the patient and/or caregivers. I have explained the patient's condition, diagnosis and treatment plan based on the information available to me at this time. I have answered the patient's and/or caregiver's questions and addressed any concerns. The patient and/or caregivers have as good understanding of the patient's diagnosis, condition and treatment plan as can be expected at this point. The vital signs have been stable. The patient's condition is stable and appropriate for discharge from the emergency department. The patient will pursue further outpatient evaluation with the primary care physician or other designated or consulting physician as outlined in the dischar ge instructions. The patient and/or caregivers are agreeable to this plan of care and follow-up instructions have been explained in detail. The patient and/or caregivers have received these instruction. The patient/and or caregivers are aware that any significant change in condition or worsening of symptoms should prompt an immediate return to this or the closest emergency department or call 911.
[2021-09-09 00:27] LABS: Absolute Neutrophil Ct (ANC) 4.48 x10^3/uL (1.4-6.9); Basophil (Absolute #) 0.05 x10^3/uL (0-0.4); Eosinophil % 2.3 % (0.00-5.0); Hematocrit 36.8 % (35-47); Hemoglobin 11.6 g/dL (12.0-16.0); Lymphocyte (Absolute #) 3.24 x10^3/uL (1.0-4.6); Lymphocytes % 37.7 % (24.0-44.0); Mean Corpuscular Hemoglobin 27.1 pg (26-32); Mean Corpuscular Hgb Concent. 31.5 g/dL (32-36); Mean Platelet Volume 10.5 fL (7.5-11.0); Neutrophil % 52.2 % (36.0-66.0); Platelet Count 315 x10^3/uL (150-450); Red Blood Count 4.28 x10^6/uL (4.1-5.4); Red Cell Distribution Width 12.5 % (11.5-14.0); White Blood Count 8.6 x10^3/uL (4.0-10.5)
[2021-09-09 00:50] LABS: ALKALINE PHOSPHATASE 57 U/L (38-126); ANION GAP 10.9 MEQ/L (5-15); BLOOD UREA NITROGEN 6 mg/dL (7-17); CHLORIDE 102 mmol/L (98-107); Calcium 9.4 mg/dL (8.4-10.2); Carbon Dioxide 29 mmol/L (22-30); Creatinine 1 0.91 mg/dL (0.52-1.04); EST GLOMERULAR FILTRATION RATE > 60.0 ML/MIN; Glucose 105 mg/dL (74-106); Potassium 3.7 mmol/L (3.5-5.1); SGOT/AST 18 U/L (14-36); SGPT/ALT 12 U/L (0-35); SODIUM 138 mmol/L (137-145); Total Protein 6.9 g/dL (6.3-8.2)
[2021-09-09 00:57] LABS: NT PRO BNP < 11.5 pg/mL (0-450); TROPONIN < 0.012 ng/mL (0.000-0.034)
[2021-09-09 03:11] VITALS: BP 126/76; PULSE 83
[2021-09-09 03:22] VITALS: O2SAT 98
--- NOTE | 2021-09-09 09:22 | XRAY ---
Indication: Chest and left arm pain. Comparison: None Portable chest demonstrates normal heart, lungs, and bony thorax.
== END 2021-09-09 03:28 | disposition home or self-care (01) ==
LOC: ED 23:50
DX: R07.9 Chest pain, unspecified (principal); Z72.0 Tobacco use; Z28.310 Unvaccinated for COVID-19
CPT/HCPCS: 36000; 36415; 71045; 80053; 81025; 83880; 84484; 85025; 85379; 93005; 93041; 94760; 99284

== ENCOUNTER 2023-06-26 13:59 | Emergency (ER) | payer OTHER ==
[2023-06-26 15:24] VITALS: TEMP 98.4
--- NOTE | 2023-06-26 15:51 | ERPHSYRPT ---
- History of Present Illness Time Seen by Provider: 06/26/23 14:01 Historian: patient Exam Limitations: no limitations Patient Subjective Stated Complaint: C/O abdominal pain for several days Triage Nursing Assessment: Patient ambulated back to ER. She is alert and oriented. NO SOB. No cough. Skin tone normal. PRIETO CAMPOS. Physician History: 27 years old female with history of kidney stones presented in the ER with complains of bilateral flank pain for the last 3 days with progressive worsening. Patient reports marked to severe sharp pain with associated nausea but no vomiting. Denies any fever or chills but does report increased urinary frequency without urgency or hesitancy. No hematuria reported. Reports having similar symptoms in the past with kidney stones. Allergies/Adverse Reactions: tetanus toxoid, adsorbed Allergy (Severe, Verified 06/26/23 15:06) Swelling latex Allergy (Verified 06/26/23 15:06) Hives Home Medications: Montelukast Sodium 10 mg [Singulair 10 MG] 1 tab PO DAILY 06/26/23 [History] Omeprazole 1 cap PO DAILY 06/26/23 [History] Hx Tetanus, Diphtheria Vaccination/Date Given: No (allergy) Hx Influenza Vaccination/Date Given: No Hx Pneumococcal Vaccination/Date Given: No Immunizations Up to Date: Yes Travel Risk - International Travel Have you traveled outside of the country in past 3 weeks: No - Emerging Infectious Disease Are you exhibiting symptoms associated with any current EIDs: Yes Symptoms: Abdominal Pain, Diarrhea - Review of Systems Constitutional: No Symptoms Eyes: No Symptoms Ears, Nose, & Throat: No Symptoms Respiratory: No Symptoms Cardiac: No Symptoms Abdominal/Gastrointestinal: Abdominal Pain, Nausea Genitourinary Symptoms: Frequency, Flank Pain Musculoskeletal: No Symptoms Skin: No Symptoms Neurological: No Symptoms Psychological: No Symptoms Hematologic/Lymphatic: No Symptoms Immunological/Allergic: No Symptoms - Past Medical History Pertinent Past Medical History: Yes Neurological History: No Pertinent History ENT History: No Pertinent History Cardiac History: No Pertinent History Respiratory History: Asthma Endocrine Medical History: No Pertinent History Musculoskeletal History: Osteoarthritis GI Medical History: GERD History: No Pertinent History Psycho-Social History: Anxiety, Depression Female Reproductive Disorders: Endometriosis, Other Other Medical History: OTHER PMHX: GERD, ANXIETY, DEPRESSION, kidney stone, UTIs, hx back problems, urethralitis - Past Surgical History Past Surgical History: Yes Neuro Surgical History: No Pertinent History Cardiac: No Pertinent History Respiratory: No Pertinent History Gastrointestinal: No Pertinent History Genitourinary: No Pertinent History Musculoskeletal: No Pertinent History Female Surgical History: Section, Other Other Surgical History: endometrioma removal on 05/20/23 - Female History Hx Last Menstrual Period: 06/07-06/13 Hx Now: No - Social History Smoking Status: Former smoker How long have you smoked: 5 yrs Exposure to second hand smoke: No Drug Use: marijuana Patient Lives Alone: No - Nursing Vital Signs Nursing Vital Signs: Initial Vital Signs Pulse Rate 73 06/26/23 15:06 Respiratory Rate 16 06/26/23 15:06 Blood Pressure 148/94 06/26/23 15:06 O2 Sat by Pulse Oximetry 93 L 06/26/23 15:06 Pain Scale Pain Intensity 0 - Physical Exam General Appearance: no apparent distress, alert Eye Exam: PERRL/EOMI Neck Exam: normal inspection, full range of motion Respiratory Exam: normal breath sounds, lungs clear Cardiovascular Exam: regular rate/rhythm, normal heart sounds Gastrointestinal/Abdomen Exam: soft, normal bowel sounds, tenderness (Right flank), guarding Back Exam: normal inspection, CVA tenderness Extremity Exam: normal inspection, normal range of motion Neurologic Exam: alert, oriented x 3, cooperative Skin Exam: normal color SpO2 Interpretation: normal SpO2: 91 O2 Delivery: Room Air Ordered Tests: Active Orders 24 hr Category Date Time Status IV Insertion STAT Care 06/26/23 15:49 Active NPO (ED) STAT Care 06/26/23 15:49 Active ABDOMEN AND PELVIS W/0 CONTRAS [CT] Stat Exams 06/26/23 16:43 Completed CBC W DIFF Stat Lab 06/26/23 15:30 Completed CMP Stat Lab 06/26/23 15:30 Completed CULTURE,URINE Stat Lab 06/26/23 15:56 Received HCG QUALITATIVE, URINE Stat Lab 06/26/23 15:56 Completed LIPASE Stat Lab 06/26/23 15:30 Completed UA W/RFX UR CULTURE Stat Lab 06/26/23 15:56 Completed Medication Summary Discontinued Medications Generic Name Dose Route Start Last Admin Trade Name Freq PRN Reason Stop Dose Admin Sodium Chloride 1,000 mls @ 999 mls/hr 06/26/23 15:49 06/26/23 16:55 Sodium Chloride 0.9% 1000 Ml IV 06/26/23 16:49 Infused .Q1H1M STA Infusion Sodium Chloride Confirm 06/26/23 15:52 Sodium Chloride 0.9% 1000 Ml Administered 06/26/23 15:53 Dose 1,000 mls @ ud .ROUTE .STK-MED ONE Ceftriaxone Sodium/Dextrose 2 g in 50 mls @ 100 mls/hr 06/26/23 17:24 06/26/23 17:44 Rocephin 2 Gm-D5w 50ml Bag IV 06/26/23 17:53 100 ml/hr STAT STA 100 mls/hr Administration Ceftriaxone Sodium/Dextrose Confirm 06/26/23 17:37 Rocephin 2 Gm-D5w 50ml Bag Administered 06/26/23 17:38 Dose 2 g in 50 mls @ ud IV .STK-MED ONE Ketorolac Tromethamine 30 mg 06/26/23 15:49 06/26/23 15:54 Ketorolac Tromethamine 30 Mg/Ml Inj IV 06/26/23 15:50 30 mg STAT ONE Administration Ketorolac Tromethamine Confirm 06/26/23 15:52 Ketorolac Tromethamine 30 Mg/Ml Inj Administered 06/26/23 15:53 Dose 30 mg .ROUTE .STK-MED ONE Lab/Rad Data: Laboratory Result Diagrams 06/26/23 15:30 06/26/23 15:30 Laboratory Results 06/26/23 06/26/23 06/26/23 Range/Units 15:56 15:56 15:30 WBC (4.0-10.5) x10^3/uL RBC (4.1-5.4) x10^6/uL Hgb (12.0-16.0) g/dL Hct (35-47) % MCV (78-100) fL MCH (26-32) pg MCHC (32-36) g/dL RDW (11.5-14.0) % Plt Count (150-450) x10^3/uL MPV (7.5-11.0) fL Gran % (36.0-66.0) % Immature Gran % (Auto) (0.00-0.4) % Nucleat RBC Rel Count (0.00-0.1) % Eos # (Auto) (0-0.5) x10^3/uL Immature Gran # (Auto) (0.00-0.03) x10^3u/L Absolute Lymphs (auto) (1.0-4.6) x10^3/uL Absolute Monos (auto) (0.0-1.3) x10^3/uL Absolute Nucleated RBC (0.00-0.01) x10^3u/L Lymphocytes % (24.0-44.0) % Monocytes % (0.0-12.0) % Eosinophils % (0.00-5.0) % Basophils % (0.0-0.4) % Absolute Granulocytes (1.4-6.9) x10^3/uL Basophils # (0-0.4) x10^3/uL Sodium 140 (135-145) mmol/L Potassium 3.7 (3.5-5.1) mmol/L Chloride 105 (98-107) mmol/L Carbon Dioxide 26 (22-30) mmol/L Anion Gap 12.2 (5-15) MEQ/L BUN 6 L (7-17) mg/dL Creatinine 0.81 (0.52-1.04) mg/dL Estimated GFR 102.6 ML/MIN Glucose 84 (74-106) mg/dL Calcium 9.4 (8.4-10.2) mg/dL Total Bilirubin 0.20 (0.2-1.3) mg/dL AST 17 (14-36) U/L ALT 10 (0-35) U/L Alkaline Phosphatase 59 (38-126) U/L Serum Total Protein 7.8 (6.3-8.2) g/dL Albumin 4.2 (3.5-5.0) g/dL Lipase 61 (23-300) U/L Urine Color Dark Yellow A (Yellow) Urine Appearance Cloudy A (Clear) Urine pH 6.5 (4.6-8.0) Ur Specific [place] 1.010 (1.005-1.030) Urine Protein 100 A (Negative) Urine Glucose (UA) Negative (Negative) mg/dL Urine Ketones Negative (Negative) Urine Blood Moderate A (Negative) Urine Nitrite Positive A (Negative) Urine Bilirubin Negative (Negative) Urine Urobilinogen 1.0 A (0.2) mg/dL Ur Leukocyte Esterase Large A (Negative) U Hyaline Cast (Auto) 3-5 A (0-2) /LPF Urine Microscopic RBC 11-20 A (0-5) /HPF Urine Microscopic WBC >100 A (0-5) /HPF Ur Epithelial Cells Rare (None Seen) /HPF Urine Bacteria Few A (None Seen) /HPF Urine Culture Reflexed YES (NO) Urine HCG, Qual NEGATIVE (NEGATIVE) 06/26/23 Range/Units 15:30 WBC 12.0 H (4.0-10.5) x10^3/uL RBC 4.40 (4.1-5.4) x10^6/uL Hgb 11.9 L (12.0-16.0) g/dL Hct 37.1 (35-47) % MCV 84.3 (78-100) fL MCH 27.0 (26-32) pg MCHC 32.1 (32-36) g/dL RDW 14.1 H (11.5-14.0) % Plt Count 315 (150-450) x10^3/uL MPV 11.1 H (7.5-11.0) fL Gran % 70.9 H (36.0-66.0) % Immature Gran % (Auto) 0.2 (0.00-0.4) % Nucleat RBC Rel Count 0.0 (0.00-0.1) % Eos # (Auto) 0.06 (0-0.5) x10^3/uL Immature Gran # (Auto) 0.03 (0.00-0.03) x10^3u/L Absolute Lymphs (auto) 2.64 (1.0-4.6) x10^3/uL Absolute Monos (auto) 0.74 (0.0-1.3) x10^3/uL Absolute Nucleated RBC 0.00 (0.00-0.01) x10^3u/L Lymphocytes % 22.0 L (24.0-44.0) % Monocytes % 6.2 (0.0-12.0) % Eosinophils % 0.5 (0.00-5.0) % Basophils % 0.2 (0.0-0.4) % Absolute Granulocytes 8.52 H (1.4-6.9) x10^3/uL Basophils # 0.02 (0-0.4) x10^3/uL Sodium (135-145) mmol/L Potassium (3.5-5.1) mmol/L Chloride (98-107) mmol/L Carbon Dioxide (22-30) mmol/L Anion Gap (5-15) MEQ/L BUN (7-17) mg/dL Creatinine (0.52-1.04) mg/dL Estimated GFR ML/MIN Glucose (74-106) mg/dL Calcium (8.4-10.2) mg/dL Total Bilirubin (0.2-1.3) mg/dL AST (14-36) U/L ALT (0-35) U/L Alkaline Phosphatase (38-126) U/L Serum Total Protein (6.3-8.2) g/dL Albumin (3.5-5.0) g/dL Lipase (23-300) U/L Urine Color (Yellow) Urine Appearance (Clear) Urine pH (4.6-8.0) Ur Specific [place] (1.005-1.030) Urine Protein (Negative) Urine Glucose (UA) (Negative) mg/dL Urine Ketones (Negative) Urine Blood (Negative) Urine Nitrite (Negative) Urine Bilirubin (Negative) Urine Urobilinogen (0.2) mg/dL Ur Leukocyte Esterase (Negative) U Hyaline Cast (Auto) (0-2) /LPF Urine Microscopic RBC (0-5) /HPF Urine Microscopic WBC (0-5) /HPF Ur Epithelial Cells (None Seen) /HPF Urine Bacteria (None Seen) /HPF Urine Culture Reflexed (NO) Urine HCG, Qual (NEGATIVE) - Progress Progress: improved, re-examined Progress Note: 06/26/23 18:25 27 years old is evaluated for bilateral flank pain. Patient is given fluids and symptomatic treatment, on reevaluation she is feeling much better. No peritoneal signs on repeated evaluations. Workup showed normal white count, fairly unremarkable chemistries. Patient does have UTI and is given a dose of Rocephin in here. Obtain CT abdomen pelvis which showed no acute intra- abdominal pelvic findings. With patient's history of bilateral flank pain I will treat her with cefpodoxime and have her outpatient follow-up. Discussed signs symptoms of worsening needing return to ER which she seems understanding. Stable for discharge. Counseled pt/family regarding: lab results, diagnosis, need for follow-up, rad results Medical Desision Making - Independent Historian Additional History obtained from: Spouse - Diagnostic Testing Diagnostic test were ordered, analyzed, and reviewed by me: Yes Radiological Interpretation: Reviewed by me, Teleradiologist Report - Risk of complications The pt has a mod risk of morbidity or mortality based on: Need for prescription drug management - Departure Departure Disposition: Home Clinical Impression: Acute pyelonephritis Condition: Stable Critical Care Time: No Referrals: FRANCHESCA HALL MD [Primary Care Provider] - Follow up/PCP as directed Instructions: Urinary Tract Infection, Adult (DC), Severe Abdominal Pain, Adult (DC) Additional Instructions: Drink plenty of fluids to keep yourself well-hydrated. Take Tylenol/ibuprofen as needed. Follow-up with primary care for reevaluation. Return to ER for worsening pain or if having difficulty urination, intractable nausea vomiting/fever chills etc. Prescriptions: Ibuprofen 600 mg PO Q6HPRN PRN 10 Days #20 tablet PRN Reason: Pain Cefpodoxime Proxetil 200 mg [Vantin 200 mg] 200 mg PO BID 7 Days #14 tablet
[2023-06-26] MEDS ORDERED: Sodium Chloride 0.9% 1000 ML 1,000 ML ONE (15:52)
[2023-06-26] MEDS ORDERED: TORAdol 30 mg Injection ONE (15:52)
[2023-06-26 15:54] LABS: Absolute Neutrophil Ct (ANC) 8.52 x10^3/uL (1.4-6.9); BASOPHIL % 0.2 % (0.0-0.4); Basophil (Absolute #) 0.02 x10^3/uL (0-0.4); Eosinophil % 0.5 % (0.00-5.0); Eosinophil (Absolute #) 0.06 x10^3/uL (0-0.5); Hematocrit 37.1 % (35-47); Hemoglobin 11.9 g/dL (12.0-16.0); IMMATURE GRAN # 0.03 x10^3u/L (0.00-0.03); IMMATURE GRAN % 0.2 % (0.00-0.4); Lymphocyte (Absolute #) 2.64 x10^3/uL (1.0-4.6); Mean Cell Volume 84.3 fL (78-100); Mean Corpuscular Hgb Concent. 32.1 g/dL (32-36); Mean Platelet Volume 11.1 fL (7.5-11.0); Monocyte (Absolute #) 0.74 x10^3/uL (0.0-1.3); Monocytes % 6.2 % (0.0-12.0); Neutrophil % 70.9 % (36.0-66.0); Platelet Count 315 x10^3/uL (150-450); Red Cell Distribution Width 14.1 % (11.5-14.0)
[2023-06-26] MEDS: TORAdol 30 mg Injection IV ONE (15:54)
[2023-06-26] MEDS: Sodium Chloride 0.9% 1000 ML 1,000 ML IV STA (15:54)
[2023-06-26 16:33] LABS: ALBUMIN 4.2 g/dL (3.5-5.0); ANION GAP 12.2 MEQ/L (5-15); BILIRUBIN,TOTAL 0.2 mg/dL (0.2-1.3); Calcium 9.4 mg/dL (8.4-10.2); Creatinine 1 0.81 mg/dL (0.52-1.04); EST GLOMERULAR FILTRATION RATE 102.6 ML/MIN; Potassium 3.7 mmol/L (3.5-5.1); Total Protein 7.8 g/dL (6.3-8.2)
[2023-06-26 16:35] LABS: HCG URINE TEST NEGATIVE (NEGATIVE)
[2023-06-26 16:39] LABS: Appearance Cloudy (Clear); Bacteria Few /HPF (None Seen); Bilirubin Negative (Negative); Blood Moderate (Negative); Epithelial Cells Rare /HPF (None Seen); Glucose, Urine Negative (Negative); Ketones Negative (Negative); Leukocyte Esterase Large (Negative); Nitrite Positive (Negative); Ph 6.5 (4.6-8.0); Protein,Urine Dip 100 (Negative); WBC >100 /HPF (0-5)
[2023-06-26 16:43] LABS: ADD URINE CULTURE? YES (NO)
[2023-06-26] MEDS ORDERED: ROCEPHIN 2 Gm-D5w 50ML BAG** 2 G/50 ML IVPB IV ONE (17:37)
[2023-06-26] MEDS: ROCEPHIN 2 Gm-D5w 50ML BAG** 2 G/50 ML IVPB IV STA (17:44)
--- NOTE | 2023-06-26 18:09 | XRAY ---
CLINICAL HISTORY: flank pain COMPARISON: CT from 01/24/2021. TECHNIQUE: Axail CT scan of the abdomen and pelvis was performed without IV contrast. Coronal and sagittal reconstructive images were also obtained. CTDI: 5.11 mGy, DLP: 260.27 mGy-cm. One of the following dose reduction techniques were utilized for this exam: Automated exposure control, adjustment of the mA and/or kV according to patient size, use of iterative reconstruction. FINDINGS: Abdomen: The liver is normal in size. No focal or diffuse parenchymal abnormality. The portal vein, intrahepatic biliary radicals and the bile ducts are normal. The spleen, pancreas, and adrenal glands are unremarkable. The kidneys are unremarkable. They are normal in size and shape. No calculi or hydronephrosis. Inflammatory changes visualized in right kidney on previous CT are no longer identified. Lymph node of 6 mm adjacent to the upper third of right ureter, with no significant changes. The gallbladder is normal. No pericholecystic collection or radio-dense calculi in the gall bladder. The ascending colon, the transverse colon, the descending colon, visualized small bowel loops are unremarkable. Normal caliber cecal appendix. There is no evidence of significant enlargement of the mesenteric or retroperitoneal lymph nodes. Pelvis: The urinary bladder is unremarkable. The rectosigmoid colon is unremarkable. The pelvic vasculature is unremarkable. Low-density annular structure in vagina. No evidence of pelvic lymphadenopathy. The osseous structures in the pelvis, lower rib cage and lumbar spine show no abnormality. No lytic or sclerotic bone lesions. IMPRESSION: No acute pathological findings detectable by the current method are identified. Electronically Signed by: Bobby Quinteros MD. (06/26/2023 18:04:56 EDT)
[2023-06-26 18:36] VITALS: BP 107/62; PULSE 80; RESP 16; O2SAT 98
== END 2023-06-26 18:40 | disposition home or self-care (01) ==
LOC: ED 13:59
DX: N10 Acute pyelonephritis (principal); R10.9 Unspecified abdominal pain; R11.0 Nausea; Z79.899 Other long term (current) drug therapy
CPT/HCPCS: 36000; 36415; 74176; 80053; 81001; 81025; 83690; 85025; 87077; 87086; 87186; 96365; 96374; 99284; J0696; J1885

== ENCOUNTER 2025-01-10 13:46 | Emergency (ER) | payer BC ==
[2025-01-10 14:07] VITALS: TEMP 97.1; O2SAT 100
[2025-01-10 14:39] LABS: BASOPHIL % 0.2 % (0.1-1.2); Basophil (Absolute #) 0.01 x10^3/uL (0.01-0.08); Eosinophil (Absolute #) 0.04 x10^3/uL (0.04-0.36); Hematocrit 38.3 % (34.1-44.9); Hemoglobin 12.2 g/dL (11.2-15.7); IMMATURE GRAN # 0.01 x10^3u/L (0.001-0.031); IMMATURE GRAN % 0.2 % (0.001-0.429); Lymphocyte (Absolute #) 1.64 x10^3/uL (1.18-3.74); Mean Corpuscular Hemoglobin 26.6 pg (25.6-32.2); Mean Corpuscular Hgb Concent. 31.9 g/dL (32.2-35.5); Monocyte (Absolute #) 0.42 x10^3/uL (0.24-0.86); NUCLEATED RBC # 0.00 x10^3u/L (0.00-0.012); NUCLEATED RBC % 0.0 % (0.00-0.2); Platelet Count 340 x10^3/uL (182-369); Red Blood Count 4.58 x10^6/uL (3.93-5.22); White Blood Count 5.8 x10^3/uL (3.98-10.04)
[2025-01-10 15:08] VITALS: RESP 16
--- NOTE | 2025-01-10 15:09 | ERPHSYRPT ---
- History of Present Illness Time Seen by Provider: 01/10/25 14:33 Source: patient Patient Subjective Stated Complaint: bleeding during Triage Nursing Assessment: Pt brought to the ER by her , irais wnl, denies pain, pulses normal, skin n/w/d, mild bleeding without pain, miscarriage in August 2024, one child age 8, denies chest pain, no difficulty breathing, doesn't appear to be in any distress Physician History: Is a 21-year-old female who presents for vaginal bleeding. She reports that she is approximately 4 weeks . She states she had a miscarriage and follow- up with OB in the spring. She denies pain. Denies dizziness. She states she had some increased clots this morning. Allergies/Adverse Reactions: tetanus toxoid, adsorbed Allergy (Severe, Verified 08/28/24 09:15) Swelling latex Allergy (Verified 08/28/24 09:15) Hives metronidazole Allergy (Verified 01/10/25 14:08) Hives Home Medications: Montelukast Sodium 10 mg [Singulair 10 MG] 1 tab PO DAILY 06/26/23 [History] Cetirizine HCl [Zyrtec] 10 mg PO DAILY 08/18/24 [History] Hx Tetanus, Diphtheria Vaccination/Date Given: Yes Hx Influenza Vaccination/Date Given: No Hx Pneumococcal Vaccination/Date Given: No Travel Risk - International Travel Have you traveled outside of the country in past 3 weeks: No - Emerging Infectious Disease Are you exhibiting symptoms associated with any current EIDs: No Symptoms: Abdominal Pain, Diarrhea - Review of Systems Constitutional: No Fever, No Chills Eyes: No Symptoms Ears, Nose, & Throat: No Symptoms Respiratory: No Cough, No Dyspnea Cardiac: No Chest Pain, No Edema, No Syncope Abdominal/Gastrointestinal: No Abdominal Pain, No Nausea, No Vomiting, No Diarrhea Genitourinary Symptoms: , Vaginal Bleeding, No Dysuria, No Frequency, No Flank Pain, No Vaginal Discharge Musculoskeletal: No Back Pain, No Neck Pain Skin: No Rash Neurological: No Dizziness, No Focal Weakness, No Sensory Changes Psychological: No Symptoms Endocrine: No Symptoms All Other Systems: Reviewed and Negative - Past Medical History Pertinent Past Medical History: Yes Neurological History: No Pertinent History ENT History: No Pertinent History Cardiac History: No Pertinent History Respiratory History: Asthma Endocrine Medical History: No Pertinent History Musculoskeletal History: Osteoarthritis GI Medical History: GERD History: No Pertinent History Psycho-Social History: Anxiety, Depression Female Reproductive Disorders: Endometriosis, Other Other Medical History: OTHER PMHX: GERD, ANXIETY, DEPRESSION, kidney stone, UTIs, hx back problems, urethralitis - Past Surgical History Past Surgical History: Yes Neuro Surgical History: No Pertinent History Cardiac: No Pertinent History Respiratory: No Pertinent History Gastrointestinal: No Pertinent History Genitourinary: No Pertinent History Musculoskeletal: No Pertinent History Female Surgical History: Section, Other Other Surgical History: endometrioma removal on 05/20/23 - Female History Hx Last Menstrual Period: 06/23/24 Hx Now: Yes Gestational Age: 4 weeks - Social History Smoking Status: Former smoker Exposure to second hand smoke: Yes Drug Use: marijuana - Social Determinants of Health Will the patient participate in the screening: Yes Do you worry about a steady place to live?: No Do you have any problems with any of the following?: No known problems In the past 12 months,have you had to go without utilities?: No Transportation Issues: No Has anyone in your support network made you feel unsafe?: No Have you or anyone in your house had to go w/o enough food: No - Nursing Vital Signs Nursing Vital Signs: Initial Vital Signs Temperature 97.1 F 01/10/25 14:00 Pulse Rate 98 H 01/10/25 14:00 Blood Pressure 136/92 01/10/25 14:00 O2 Sat by Pulse Oximetry 100 01/10/25 14:00 Pain Scale Pain Intensity 0 - Physical Exam General Appearance: no apparent distress Gastrointestinal/Abdomen Exam: soft, No tenderness, No distention Pelvic Exam: other (There is no discharge on pelvic exam. No mass. There was a minimal amount of vaginal bleeding. Bleeding from the os. No uterine tenderness. No other abnormality. No discharge) Neurologic Exam: alert, oriented x 3 SpO2 Interpretation: normal SpO2: 100 Ordered Tests: Active Orders 24 hr Category Date Time Status OB <14 WKS 1ST GESTATION [US] Stat Exams 01/10/25 14:17 Completed CBC W DIFF Stat Lab 01/10/25 14:35 Completed HCG, Quantitative (Inhouse) Stat Lab 01/10/25 14:35 Completed Lab/Rad Data: Laboratory Result Diagrams 01/10/25 14:35 Laboratory Results 10/16/25 10/16/25 Range/Units 14:35 14:35 WBC 5.8 (3.98-10.04) x10^3/uL RBC 4.58 (3.93-5.22) x10^6/uL Hgb 12.2 (11.2-15.7) g/dL Hct 38.3 (34.1-44.9) % MCV 83.6 (79.4-94.8) fL MCH 26.6 (25.6-32.2) pg MCHC 31.9 L (32.2-35.5) g/dL RDW 14.7 H (11.7-14.4) % Plt Count 340 (182-369) x10^3/uL MPV 10.4 (9.4-12.3) fL Gran % 63.2 (34.0-71.1) % Immature Gran % (Auto) 0.2 (0.001-0.429) % Nucleat RBC Rel Count 0.0 (0.00-0.2) % Eos # (Auto) 0.04 (0.04-0.36) x10^3/uL Immature Gran # (Auto) 0.01 (0.001-0.031) x10^3u/L Absolute Lymphs (auto) 1.64 (1.18-3.74) x10^3/uL Absolute Monos (auto) 0.42 (0.24-0.86) x10^3/uL Absolute Nucleated RBC 0.00 (0.00-0.012) x10^3u/L Lymphocytes % 28.4 (19.3-51.7) % Monocytes % 7.3 (4.7-12.5) % Eosinophils % 0.7 (0.7-5.8) % Basophils % 0.2 (0.1-1.2) % Absolute Granulocytes 3.66 (1.56-6.13) x10^3/uL Basophils # 0.01 (0.01-0.08) x10^3/uL Beta HCG, Quant 4.89 mIU/ml Pulled previous blood typing patient is a positive Beta-hCG was 4. Ultrasound was reviewed no IUP or ectopic. - Progress Progress: improved Progress Note: 01/10/25 15:30 Beta-hCG 4 Unremarkable ultrasound. Positive 4 weeks ago suspect complete miscarriage. Follow-up return instructions given. She has OB follow- up. - Departure Departure Disposition: Home Clinical Impression: Inevitable complete miscarriage without complication Condition: Stable Critical Care Time: No Referrals: FRANCHESCA HALL MD [Primary Care Provider, [facility]ILY [facility]ACTICE] - Follow up/PCP as directed Additional Instructions: Urine for increased bleeding increased pain or concerns. Arrange FISHERIES TECHNICIAN follow- up this week.
--- NOTE | 2025-01-10 15:18 | XRAY ---
Indication: Bleeding. Two-dimensional transvaginal early OB ultrasound performed. Comparison: None Retroflexed uterus measuring 6.8 x 4.1 x 4.4 cm. No focal solid/cystic uterine mass. No intrauterine gestational sac, pole, or heart tones. Endometrial stripe measures 7.6 mm. Right ovary sonographically unremarkable. Nonvisualization left ovary. No suspicious adnexal mass or free fluid. Impression: Negative for intrauterine/ectopic .
[2025-01-10 15:39] VITALS: BP 113/70; PULSE 79
== END 2025-01-10 15:42 | disposition home or self-care (01) ==
LOC: ED 13:46
DX: O03.9 Complete or unspecified spontaneous abortion without complication (principal); Z79.899 Other long term (current) drug therapy